=== PATIENT | male | born 1940 | race Caucasian/White ===

== ENCOUNTER 2020-03-11 12:23 | Outpatient (CLI) | payer MEDICARE, SELFPAY ==
--- NOTE | 2020-03-11 12:36 | ECHO_ITS ---
Patient Info Name: Navin Gregory Age: 79 years : 1940 Gender: Male Ht: 66 in Wt: 155 lbs BSA: 1.82 m2 HR: 56 bpm BP: 158 / 90 mmHg Heart Rhythm: Sinus Rhythm Technical Quality: Good Exam Date: 03/11/2020 12:40 PM Exam Location: [facility] Patient Status: Outpatient Admit Date: 03/11/2020 Staff Ordering Physician: Tracie, Mary Egan MD Gun [employer] Manager: Arlyn Valdivia RDCS Attending Provider: Tracie, Mary Egan MD Referring Physician: Tracie LAWTON; Exam Type: CA echo doppler color flow Study Info Indications R06.02 - Shortness of breath Complete two-dimensional, color flow and Doppler transthoracic echocardiogram is performed. Strain analysis performed. History/Risk Factors Hypertension: No Dyslipidemia: No Congenital Heart Disease (CHD): No Peripheral Arterial Disease (PAD): No Myocardial Infarction (GA): No Chronic Lung Disease: No Obesity: No Renal Disease: No Coronary Artery Disease (CAD) No Congestive Heart Failure (CHF): No Cardiomyopathy/LV Systolic Dysfunction: No Diabetes Mellitus: No COPD: No Tobacco Use: Never Cerebrovascular Disease: No Deep Vein Thrombosis (DVT): None Dialysis: None Frailty Scale (CSHA): 2: Well Cardiac Arrest: No Summary 1. Left ventricular chamber dimension is normal. 2. Left ventricular systolic function is normal, estimated at 60-65%. 3. There is moderately increased left ventricular wall thickness. 4. The left ventricular diastolic function is grade I diastolic dysfunction. 5. E/e' 10 is mildly elevated. 6. Global longitudinal strain is normal at -17.7%. 7. Left atrial chamber dimension is mildly enlarged. 8. There is mild mitral valve regurgitation. 9. No pulmonary hypertension, estimated pulmonary arterial systolic pressure is 29 mmHg. 10. There is trace pulmonic regurgitation. 11. Small atheroma in anterior aortic root. Left Ventricle E/e' 10 is mildly elevated. Global longitudinal strain is normal at -17.7%. Left ventricular chamber dimension is normal. Left ventricular systolic function is normal, estimated at 60-65%. There is moderately increased left ventricular wall thickness. The left ventricular diastolic function is grade I diastolic dysfunction. Right Ventricle Right ventricular chamber dimension is normal. Right ventricular systolic function is normal. Left Atria Left atrial chamber dimension is mildly enlarged. Right Atria Right atrial chamber dimension is normal. Aortic Valve The aortic valve is trileaflet. There is no aortic valve stenosis. There is no aortic valve regurgitation. Pulmonic Valve There is trace pulmonic regurgitation. Mitral Valve There is no mitral valve stenosis. There is mild mitral valve regurgitation. Tricuspid Valve There is no tricuspid valve regurgitation. No pulmonary hypertension, estimated pulmonary arterial systolic pressure is 29 mmHg. Pericardium/Pleural There is no pericardial effusion. Inferior Vena Cava Normal inferior vena cava with >50% collapse upon inspiration consistent with normal right atrial pressure, 5 mmHg. Aorta Small atheroma in anterior aortic root. The aortic root size at the sinus of Valsalva is normal. Left Ventricular Outflow Tract Name Value Normal
== END 2020-03-11 12:24 | disposition home or self-care (01) ==
LOC: CHSIMG 12:28
PROVIDERS: PCP Family Medicine; Visit Provider Family Medicine
DX: R06.02 Shortness of breath (principal)
CPT/HCPCS: 93306

== ENCOUNTER 2020-03-15 09:13 | Outpatient (CLI) | payer MEDICARE, SELFPAY ==
[2020-03-15 09:30] LABS: Basophils Absolute Auto 0.03 K/mm3 (0.00-0.10); Basophils Percent Auto 0.4 % (0.0-1.0); Eosinophils Absolute Auto 0.25 K/mm3 (0.02-0.50); Eosinophils Percent Auto 3.1 % (1.0-6.0); Hematocrit 39.3 % (37.0-46.0); Hemoglobin 12.9 g/dL (12.4-15.3); Immature Granulocyte Absolute 0.03 K/mm3 (0.00-0.00); Immature Granulocyte Percent A 0.4 % (0.0-0.0); Lymphocytes Percent Auto 17.5 % (18.0-42.0); Mean Corpuscular HGB Conc 32.8 g/dL (32.0-36.0); Mean Corpuscular Hemoglobin 30.4 pg (27.0-31.0); Mean Corpuscular Volume 92.5 fL (78.0-102.0); Mean Platelet Volume 9.2 fl (8.7-11.0); Neutrophils Absolute Auto 5.5 K/mm3 (1.7-7.2); Neutrophils Percent Auto 68.6 % (50.0-70.0); Platelet Count Result 303 K/mm3 (150-420); Red Blood Count 4.25 M/mm3 (4.70-6.10); Red Cell Distribution Width 12.5 % (11.6-14.4)
[2020-03-15 10:36] LABS: Alanine Aminotransferase 21 U/L (16-63); Albumin Level 3.6 g/dL (3.4-5.0); Alkaline Phosphatase 53 U/L (46-116); Anion Gap 8 mmol/L (8-16); Aspartate Amino Transferase 16 U/L (15-37); Bilirubin,Total 0.4 mg/dL (0.00-1.00); Blood Urea Nitrogen 24 mg/dL (7-18); Calcium 9.6 mg/dL (8.5-10.1); Carbon Dioxide 28 mmol/L (21-32); Chloride 101 mmol/L (98-108); Cholesterol 152 mg/dL (0-200); Estimated Glomerular Filt Rate 56; Glucose 95 mg/dL (70-99); HDL Direct 52 mg/dL (40-60); LDL Cholesterol Calculated 80 mg/dL (<130); Osmolality Calculated 288 mOsm/kg (285-295); Potassium 4.1 mmol/L (3.5-5.1); Sodium 137 mmol/L (136-145); Total Protein 7.3 g/dL (6.4-8.2); Triglycerides 101 mg/dL (0-150)
[2020-03-15 10:53] LABS: Thyroid Stimulating Hormone Reflex 1.94 u/IU/mL (0.36-3.74)
== END 2020-03-15 09:14 | disposition home or self-care (01) ==
LOC: CHSLAB 09:15
PROVIDERS: PCP Family Medicine; Visit Provider Family Medicine
DX: R53.83 Other fatigue (principal); I10 Essential (primary) hypertension; E78.2 Mixed hyperlipidemia
CPT/HCPCS: 36415; 80053; 80061; 84443; 85025

== ENCOUNTER 2020-05-25 09:33 | Outpatient (CLI) | payer MEDICARE, SELFPAY ==
--- NOTE | ~2020-05-25 | CT_ITS ---
EXAMINATION: CT abdomen pelvis wo/w con DATE: 05/25/2020 10:47 INDICATION: Bladder cancer TECHNIQUE: Computed tomography (CT) of the abdomen and pelvis was performed without intravenous contr ast. CT of the abdomen and pelvis was then performed with a total of 100 mL Omnipaque 350 intravenous contrast. The dose-length product (DLP) was 521.36 mGy-cm. Automated exposure control and iterative reconstruction technique were employed. COMPARISON: 01/07/2019 FINDINGS: Minimal dependent atelectasis is present in the lung bases. The heart size is normal. There is a stable 4 mm nodule of the right lower lobe. Calcified pleural plaques are noted. There is emphy sema of the visualized lung bases. The liver, spleen, pancreas, gallbladder, and adrenal glands are n ormal. There is a moderate-sized sliding hiatal hernia. A 5.6 x 3.1 cm mass has developed in the post erior aspect of the left mid and upper kidney. There is urothelial enhancement of the left renal pelv is. There is left retroperitoneal lymphadenopathy with largest lymph node measuring 11 mm on image 52 . The left renal vein is patent. There is moderate lumbar spondylosis. The right kidney is unremark able. There are changes of cystectomy and ileal conduit formation. Colonic diverticulosis is present without evidence of diverticulitis. There is no free intraperitoneal gas or evidence of bowel obstruc tion. IMPRESSION: 1. Interval development of a left kidney mass, urothelial thickening and enhancement of the left ann marie l pelvis, and left retroperitoneal lymphadenopathy. Although findings could reflect pyelonephritis, u rothelial carcinoma is the primary consideration. Reviewed, dictated and finalized at location A. ORY MAINTENANCE MANAGER IMPRESSION: 1. Interval development of a left kidney mass, urothelial thickening and enhanc ement of the left renal pelvis, and left retroperitoneal lymphadenopathy. Altho ugh findings could reflect pyelonephritis, urothelial carcinoma is the primary consideration.
--- NOTE | ~2020-05-25 | XR_ITS ---
EXAMINATION: XR chest 2V EXAM DATE: 05/25/2020 10:48 INDICATION: Cough, bladder cancer follow-up. TECHNIQUE: Frontal and lateral projections of the chest obtained and reviewed. Comparison is made to prior examination from 11/14/18. FINDINGS: Lungs are moderately hyperinflated. The lungs are clear. There are no pleural effusions. The cardiomediastinal silhouette is within normal limits. There is no pneumothorax suspected. The bones and soft tissues are unremarkable. IMPRESSION: 1. No acute cardiopulmonary findings. 2. Hyperinflation. Reviewed, dictated and finalized at location B. TS MEDIA
[2020-05-25 10:06] LABS: Alanine Aminotransferase 26 U/L (16-63); Albumin Level 3.5 g/dL (3.4-5.0); Alkaline Phosphatase 52 U/L (46-116); Anion Gap 10 mmol/L (8-16); Aspartate Amino Transferase 13 U/L (15-37); Bilirubin,Total 0.4 mg/dL (0.00-1.00); Blood Urea Nitrogen 22 mg/dL (7-18); Calcium 9.4 mg/dL (8.5-10.1); Carbon Dioxide 26 mmol/L (21-32); Chloride 101 mmol/L (98-108); Estimated Glomerular Filt Rate 57; Glucose 110 mg/dL (70-99); Osmolality Calculated 288 mOsm/kg (285-295); Potassium 4.2 mmol/L (3.5-5.1); Sodium 137 mmol/L (136-145); Total Protein 7.7 g/dL (6.4-8.2)
== END 2020-05-25 09:34 | disposition home or self-care (01) ==
PROVIDERS: PCP Family Medicine; Visit Provider Urology
DX: C67.9 Malignant neoplasm of bladder, unspecified (principal)
CPT/HCPCS: 36415; 71046; 74178; 80053; Q9965

== ENCOUNTER 2020-08-14 09:41 | Outpatient (CLI) | payer MEDICARE, SELFPAY ==
[2020-08-16 18:27] LABS: SARS-CoV-2 RNA PCR Negative
== END 2020-08-14 09:42 | disposition home or self-care (01) ==
LOC: CHSLAB 09:45
PROVIDERS: PCP Family Medicine; Visit Provider Urology
DX: Z01.812 Encounter for preprocedural laboratory examination (principal); Z20.822 Contact with and (suspected) exposure to COVID-19
CPT/HCPCS: C9803; U0003; U0005

== ENCOUNTER 2020-10-05 11:15 | Outpatient (CLI) | payer MEDICARE, SELFPAY ==
[2020-10-06 14:15] LABS: SARS-CoV-2 RNA PCR Negative
== END 2020-10-05 11:16 | disposition home or self-care (01) ==
LOC: CHSLAB 11:17
PROVIDERS: PCP Family Medicine; Visit Provider Family Medicine
DX: Z01.818 Encounter for other preprocedural examination (principal); Z20.822 Contact with and (suspected) exposure to COVID-19
CPT/HCPCS: C9803; U0003; U0005

== ENCOUNTER 2020-10-28 10:01 | Outpatient (CLI) | payer MEDICARE, SELFPAY ==
[2020-10-28] MEDS: SODIUM CHLORIDE 0.9% IV 250 ML 10 ML IVPB (10:37)
[2020-10-28] MEDS: diphenhydrAMINE HCl INJ 50 MG/ML VIAL 25 MG IV PUSH (10:38)
[2020-10-28] MEDS: FAMOTIDINE 20 MG/ISO 50 ML 20 MG/50 ML BAG 100 MG IVPB (10:38)
[2020-10-28 10:49] VITALS: BP 138/88; PULSE 58; RESP 14; TEMP 36.6; O2SAT 97
[2020-10-28 11:37] VITALS: BMI 25.1
[2020-10-28] MEDS: SODIUM CHLORIDE 0.9% IVPB (14:40)
[2020-10-28] MEDS: GEMCITABINE HCL IVPB (14:40)
[2020-10-28] MEDS: HEPARIN SOD FLUSH 500 UNITS/5 ML SYRINGE IV PUSH (15:14)
[2020-10-28 15:15] VITALS: BP 142/88; PULSE 60; RESP 14; TEMP 36.7; O2SAT 97
--- NOTE | 2020-10-28 15:18 | PC.NURSE ---
Patient here for cycle 1 of taxol/gemcitabine chemo regimen q 21 days. Reviewed labs from [facility] and [facility]. Chemo education given patient and daughter. Chemo regime administered via patent port. Tolerated chemo well. Safe exit of hospital.
== END 2020-10-28 10:02 | disposition home or self-care (01) ==
LOC: CHSTREATRM 10:04
PROVIDERS: PCP Family Medicine; Visit Provider Internal Medicine Hematology & Oncology
DX: Z51.11 Encounter for antineoplastic chemotherapy (principal); C66.2 Malignant neoplasm of left ureter
CPT/HCPCS: 96367; 96375; 96413; 96415; 96417; J1100; J1200; J2405; J7040; J7050; J9201; J9267

== ENCOUNTER 2020-11-04 09:54 | Outpatient (CLI) | payer MEDICARE, SELFPAY ==
[2020-11-04 10:30] VITALS: BP 136/82; PULSE 72; RESP 16; TEMP 36.7; O2SAT 98
[2020-11-04] MEDS: SODIUM CHLORIDE 0.9% IV 250 ML 10 ML IVPB (10:33)
[2020-11-04] MEDS: GEMCITABINE HCL IVPB (11:15)
[2020-11-04] MEDS: SODIUM CHLORIDE 0.9% IVPB (11:15)
[2020-11-04] MEDS: HEPARIN SOD FLUSH 500 UNITS/5 ML SYRINGE IV PUSH (12:03)
[2020-11-04 12:05] VITALS: BP 142/86; PULSE 68; RESP 14; TEMP 36.8; O2SAT 97
--- NOTE | 2020-11-04 12:05 | PC.NURSE ---
Patient here for day 8 of taxol/gemcitabine chemo regimen. Labs ok'd by Dr.Rao Murray 11/01/20 up in [place] with his appointment. Teaching reinforced on chemo regimen given to patient and daughter with understanding. Chemo regimen administered. Tolerated well. Has some congestion noted. Daughter reports DrDanitza wants him to start taking claritin daily. Will return tomorrow for day 9 with Zarxio injection around 1300. Safe exit of hospital.
== END 2020-11-04 09:55 | disposition home or self-care (01) ==
PROVIDERS: PCP Family Medicine; Visit Provider Internal Medicine Hematology & Oncology
DX: Z51.11 Encounter for antineoplastic chemotherapy (principal); C66.2 Malignant neoplasm of left ureter
CPT/HCPCS: 96367; 96413; J1100; J2405; J7040; J7050; J9201

== ENCOUNTER 2020-11-05 12:58 | Outpatient (CLI) | payer MEDICARE, SELFPAY ==
[2020-11-05] MEDS: FILGRASTIM-SNDZ 480 MCG/0.8 ML SYRINGE SUB-Q (13:11)
[2020-11-05 13:13] VITALS: BP 140/80; PULSE 72; RESP 14; TEMP 36.7; O2SAT 98
--- NOTE | 2020-11-05 13:14 | PC.NURSE ---
Here for Day 9 of chemo regime - Zarxio injection only. Reports after IV chemo yesterday, went home and slept a lot. Denies N/V, diarrhea etc. No concerns voiced by patient or by his daughter. Zarxio injection administered and medication discussed with patient/dtr. Drug sheet was given with Chemo teaching last week with day 1 of chemo. Tolerated injection well. Safe exit of hospital.
== END 2020-11-05 12:59 | disposition home or self-care (01) ==
PROVIDERS: PCP Family Medicine; Visit Provider Internal Medicine Hematology & Oncology
DX: C66.2 Malignant neoplasm of left ureter (principal); Z76.89 Persons encountering health services in other specified circumstances
CPT/HCPCS: 96372; Q5101

== ENCOUNTER 2020-11-06 10:52 | Outpatient (CLI) | payer MEDICARE, SELFPAY ==
[2020-11-06] MEDS: FILGRASTIM-SNDZ 480 MCG/0.8 ML SYRINGE SUB-Q (11:44)
== END 2020-11-06 10:53 | disposition home or self-care (01) ==
LOC: CHSLAB 10:59
PROVIDERS: PCP Internal Medicine Hematology & Oncology; Visit Provider Internal Medicine Hematology & Oncology
DX: C66.2 Malignant neoplasm of left ureter (principal); Z76.89 Persons encountering health services in other specified circumstances
CPT/HCPCS: 96372; Q5101

== ENCOUNTER 2020-11-07 10:36 | Outpatient (CLI) | payer MEDICARE, SELFPAY ==
[2020-11-07] MEDS: FILGRASTIM-SNDZ 480 MCG/0.8 ML SYRINGE SUB-Q (12:14)
== END 2020-11-07 10:37 | disposition home or self-care (01) ==
PROVIDERS: PCP Internal Medicine Hematology & Oncology; Visit Provider Internal Medicine Hematology & Oncology
DX: C66.2 Malignant neoplasm of left ureter (principal); Z76.89 Persons encountering health services in other specified circumstances
CPT/HCPCS: 96372; Q5101

== ENCOUNTER 2020-11-08 11:55 | Outpatient (CLI) | payer MEDICARE, SELFPAY ==
--- NOTE | 2020-11-08 12:05 | PC.NURSE ---
Here for OP injection
[2020-11-08] MEDS: FILGRASTIM-SNDZ 480 MCG/0.8 ML SYRINGE SUB-Q (12:09)
--- NOTE | 2020-11-08 12:11 | PC.NURSE ---
Tolerated well, chemo nurse in to speak with patient, discharged ambulatory with family
== END 2020-11-08 11:56 | disposition home or self-care (01) ==
LOC: CHSTREATRM 11:56
PROVIDERS: PCP Family Medicine; Visit Provider Internal Medicine Hematology & Oncology
DX: C66.2 Malignant neoplasm of left ureter (principal); Z76.89 Persons encountering health services in other specified circumstances
CPT/HCPCS: 96372; Q5101

== ENCOUNTER 2020-11-16 14:10 | Outpatient (CLI) | payer MEDICARE, SELFPAY ==
[2020-11-16 14:31] LABS: Hemoglobin 9.7 g/dL (12.4-15.3); Mean Corpuscular HGB Conc 32.3 g/dL (32.0-36.0); Mean Corpuscular Hemoglobin 29.6 pg (27.0-31.0); Mean Corpuscular Volume 91.5 fL (78.0-102.0); Mean Platelet Volume 9.6 fl (8.7-11.0); Platelet Count Result 445 K/mm3 (150-420); Red Blood Count 3.28 M/mm3 (4.70-6.10); Red Cell Distribution Width 14.5 % (11.6-14.4); White Blood Count 8.5 K/mm3 (4.8-10.8)
[2020-11-16 15:00] LABS: Band Neutrophils Percent 2 % (0-6); Basophils Percent Manual 0 % (0-1); Eosinophils Percent Manual 0 % (1-6); Lymphocytes Percent Manual 13 % (18-44); Metamyelocytes Percent 2 %; Monocytes Absolute Manual 1.02 K/mm3 (0.1-0.90); Monocytes Percent Manual 12 % (3-9); Myelocytes Percent 1 %; Neutrophils Absolute Manual 6.12 K/mm3 (1.3-6.7); Neutrophils Percent Manual 70 % (46-73); Total Cells Counted 100
[2020-11-16 15:32] LABS: Alanine Aminotransferase 32 U/L (16-63); Albumin Level 2.9 g/dL (3.4-5.0); Alkaline Phosphatase 55 U/L (46-116); Anion Gap 6 mmol/L (8-16); Aspartate Amino Transferase 12 U/L (15-37); Bilirubin,Total 0.3 mg/dL (0.00-1.00); Blood Urea Nitrogen 19 mg/dL (7-18); Calcium 8.7 mg/dL (8.5-10.1); Carbon Dioxide 28 mmol/L (21-32); Chloride 100 mmol/L (98-108); Estimated Glomerular Filt Rate 47; Glucose 140 mg/dL (70-99); Magnesium 2.1 mg/dL (1.8-2.4); Osmolality Calculated 282 mOsm/kg (285-295); Potassium 4.3 mmol/L (3.5-5.1); Sodium 134 mmol/L (136-145); Total Protein 6.1 g/dL (6.4-8.2)
== END 2020-11-16 14:11 | disposition home or self-care (01) ==
LOC: CHSLAB 14:14
PROVIDERS: PCP Family Medicine; Visit Provider Internal Medicine Hematology & Oncology
DX: C67.9 Malignant neoplasm of bladder, unspecified (principal)
CPT/HCPCS: 36415; 80053; 83735; 85025

== ENCOUNTER 2020-11-18 10:17 | Outpatient (CLI) | payer MEDICARE, SELFPAY ==
[2020-11-18] MEDS: FAMOTIDINE 20 MG/ISO 50 ML 20 MG/50 ML BAG 100 MG IVPB (10:47)
[2020-11-18] MEDS: diphenhydrAMINE HCl INJ 50 MG/ML VIAL 25 MG IV PUSH (10:47)
[2020-11-18] MEDS: SODIUM CHLORIDE 0.9% IV 250 ML 35 ML IVPB (10:48)
[2020-11-18 10:58] VITALS: BP 145/69; PULSE 68; RESP 14; TEMP 37.2; O2SAT 97
[2020-11-18 11:03] VITALS: BMI 25.0
[2020-11-18] MEDS: SODIUM CHLORIDE 0.9% IVPB (14:46)
[2020-11-18] MEDS: GEMCITABINE HCL IVPB (14:46)
[2020-11-18 15:39] VITALS: BP 146/70; PULSE 78; RESP 16; TEMP 37.1; O2SAT 96
[2020-11-18] MEDS: HEPARIN SOD FLUSH 500 UNITS/5 ML SYRINGE IV PUSH (15:42)
--- NOTE | 2020-11-18 15:43 | PC.NURSE ---
Patient here for cycle 2 day 1 of chemo regime. Labs reviewed and ok'd from 11/16/20. Education on chemo reinforced and continued. No concerns voiced. Chemo regime administered. Tolerated well. Safe exit of hospital. Will return Sunday, November 22 for Venofer infusion then November 25 for day 8 of chemo regime.
== END 2020-11-18 10:18 | disposition home or self-care (01) ==
PROVIDERS: PCP Family Medicine; Visit Provider Internal Medicine Hematology & Oncology
DX: Z51.11 Encounter for antineoplastic chemotherapy (principal); C66.2 Malignant neoplasm of left ureter
CPT/HCPCS: 96367; 96375; 96413; 96415; 96417; J1100; J1200; J2405; J7040; J7050; J9201; J9267

== ENCOUNTER 2020-11-22 10:44 | Outpatient (CLI) | payer MEDICARE, SELFPAY ==
[2020-11-22 11:10] VITALS: BP 129/80; PULSE 68; RESP 18; O2SAT 97
--- NOTE | 2020-11-22 11:10 | PC.NURSE ---
Patient here for Venofer infusion. Tolerated port start well. Labs drawn per order from port. Patient sitting up in chair resting. Provided with water and warm blanket. Call light within reach. Daughter sitting with patient.
[2020-11-22] MEDS: HEPARIN SOD FLUSH 500 UNITS/5 ML SYRINGE IV PUSH (11:20)
[2020-11-22] MEDS: IRON SUCROSE COMPLEX 300 MG in SODIUM CHLORIDE 0.9% IV 250 ML 125 MG IVPB (11:21)
[2020-11-22 11:32] LABS: Basophils Absolute Auto 0.03 K/mm3 (0.00-0.10); Basophils Percent Auto 0.3 % (0.0-1.0); Eosinophils Absolute Auto 0.13 K/mm3 (0.02-0.50); Eosinophils Percent Auto 1.5 % (1.0-6.0); Hematocrit 26.7 % (37.0-46.0); Hemoglobin 8.7 g/dL (12.4-15.3); Immature Granulocyte Absolute 0.03 K/mm3 (0.00-0.00); Immature Granulocyte Percent A 0.3 % (0.0-0.0); Lymphocytes Absolute Auto 0.52 K/mm3 (1.10-4.50); Mean Corpuscular HGB Conc 32.6 g/dL (32.0-36.0); Mean Corpuscular Hemoglobin 30.2 pg (27.0-31.0); Mean Corpuscular Volume 92.7 fL (78.0-102.0); Mean Platelet Volume 10.8 fl (8.7-11.0); Monocytes Absolute Auto 0.15 K/mm3 (0.10-0.90); Monocytes Percent Auto 1.7 % (2.0-11.0); Neutrophils Absolute Auto 7.8 K/mm3 (1.7-7.2); Neutrophils Percent Auto 90.2 % (50.0-70.0); Platelet Count Result 427 K/mm3 (150-420); Red Blood Count 2.88 M/mm3 (4.70-6.10); Red Cell Distribution Width 14.8 % (11.6-14.4); White Blood Count 8.6 K/mm3 (4.8-10.8)
[2020-11-22 11:59] LABS: Alanine Aminotransferase 79 U/L (16-63); Albumin Level 2.7 g/dL (3.4-5.0); Alkaline Phosphatase 43 U/L (46-116); Anion Gap 8 mmol/L (8-16); Aspartate Amino Transferase 56 U/L (15-37); Bilirubin,Total 0.5 mg/dL (0.00-1.00); Blood Urea Nitrogen 18 mg/dL (7-18); Calcium 8.7 mg/dL (8.5-10.1); Carbon Dioxide 26 mmol/L (21-32); Chloride 98 mmol/L (98-108); Estimated Glomerular Filt Rate > 60; Glucose 109 mg/dL (70-99); Osmolality Calculated 276 mOsm/kg (285-295); Sodium 132 mmol/L (136-145); Total Protein 6.4 g/dL (6.4-8.2)
--- NOTE | 2020-11-22 13:30 | PC.NURSE ---
Patient tolerated infusion well. Port site to right chest de-accessed, dressing applied to site. Patient denies any questions or concerns. Left ambulatory accompanied by daughter.
== END 2020-11-22 10:45 | disposition home or self-care (01) ==
LOC: CHSTREATRM 10:48
PROVIDERS: PCP Family Medicine; Visit Provider Internal Medicine Hematology & Oncology
DX: D70.1 Agranulocytosis secondary to cancer chemotherapy (principal)
CPT/HCPCS: 36415; 80053; 85025; 96365; 96366; J1756; J7050

== ENCOUNTER 2020-11-25 10:09 | Outpatient (CLI) | payer MEDICARE, SELFPAY ==
[2020-11-25] MEDS: SODIUM CHLORIDE 0.9% IV 250 ML 10 ML IVPB (10:20)
[2020-11-25 10:41] VITALS: BP 128/68; PULSE 74; RESP 14; TEMP 37.2; O2SAT 99
[2020-11-25] MEDS: SODIUM CHLORIDE 0.9% IVPB (11:26)
[2020-11-25] MEDS: GEMCITABINE HCL IVPB (11:26)
[2020-11-25] MEDS: HEPARIN SOD FLUSH 500 UNITS/5 ML SYRINGE IV PUSH (12:07)
[2020-11-25 12:22] VITALS: BP 138/70; PULSE 72; RESP 18; TEMP 37.2; O2SAT 98
--- NOTE | 2020-11-25 12:24 | PC.NURSE ---
Patient here for day 8 of cycle 2 chemo regimen. C/O diarrhea. Dr. Lorenzo notified and Lomotil prescribed. All other concerns discussed with patient and daughter. Labs reviewed from earlier this week. OK'd for chemo. Chemo regimen administered. Tolerated well. Safe exit of hospital. Will return next 4 days for zarxio injection.
== END 2020-11-25 10:10 | disposition home or self-care (01) ==
PROVIDERS: PCP Family Medicine; Visit Provider Internal Medicine Hematology & Oncology
DX: Z51.11 Encounter for antineoplastic chemotherapy (principal); C66.2 Malignant neoplasm of left ureter
CPT/HCPCS: 96367; 96413; J1100; J2405; J7050; J9201

== ENCOUNTER 2020-11-26 10:31 | Outpatient (CLI) | payer MEDICARE, SELFPAY ==
[2020-11-26] MEDS: FILGRASTIM-SNDZ 480 MCG/0.8 ML SYRINGE SUB-Q (10:48)
--- NOTE | 2020-11-26 10:51 | PC.NURSE ---
Patient here for day 9 of chemo regimen- Zarxio injection. Patient reports diarrhea little better- started on lomotil. Dr. Lorenzo does want of stool collection for c diff. Supplies and order explained and sent with patient. Safe exit of hospital. Will be back tomorrow for day 10 Zarxio injection.
== END 2020-11-26 10:32 | disposition home or self-care (01) ==
LOC: CHSTREATRM 10:34
PROVIDERS: PCP Family Medicine; Visit Provider Internal Medicine Hematology & Oncology
DX: C66.2 Malignant neoplasm of left ureter (principal); Z76.89 Persons encountering health services in other specified circumstances
CPT/HCPCS: 96372; Q5101

== ENCOUNTER 2020-11-27 10:17 | Outpatient (CLI) | payer MEDICARE, SELFPAY ==
[2020-11-27] MEDS: FILGRASTIM-SNDZ 480 MCG/0.8 ML SYRINGE SUB-Q (10:28)
--- NOTE | 2020-11-27 10:30 | PC.NURSE ---
Patient here for injection of Zarxio. Injection given in right upper arm, patient tolerated well. Band aid applied to site. Patient to come back tomorrow for consecutive shot. Patient left ambulatory, denies any questions or concerns at discharge.
== END 2020-11-27 10:18 | disposition home or self-care (01) ==
LOC: CHSTREATRM 10:21
PROVIDERS: PCP Family Medicine; Visit Provider Internal Medicine Hematology & Oncology
DX: C66.2 Malignant neoplasm of left ureter (principal); Z76.89 Persons encountering health services in other specified circumstances
CPT/HCPCS: 96372; Q5101

== ENCOUNTER 2020-11-28 10:48 | Outpatient (CLI) | payer MEDICARE, SELFPAY ==
[2020-11-28] MEDS: FILGRASTIM-SNDZ 480 MCG/0.8 ML SYRINGE SUB-Q (11:00)
--- NOTE | 2020-11-28 11:00 | PC.NURSE ---
Patient here to receive Sub Q injection of Zarxio. Patient tolerated injection well. Band Aid applied to site. Patient left ambulatory accompanied by family member. No questions or concerns at discharge.
== END 2020-11-28 10:49 | disposition home or self-care (01) ==
LOC: CHSTREATRM 10:51
PROVIDERS: PCP Family Medicine; Visit Provider Internal Medicine Hematology & Oncology
DX: C66.2 Malignant neoplasm of left ureter (principal); Z76.89 Persons encountering health services in other specified circumstances
CPT/HCPCS: 96372; Q5101

== ENCOUNTER 2020-11-29 10:45 | Outpatient (CLI) | payer MEDICARE, SELFPAY ==
[2020-11-29] MEDS: IRON SUCROSE COMPLEX 300 MG in SODIUM CHLORIDE 0.9% IV 250 ML 125 MG IVPB (11:06)
[2020-11-29] MEDS: FILGRASTIM-SNDZ 480 MCG/0.8 ML SYRINGE SUB-Q (11:12)
--- NOTE | 2020-11-29 11:15 | PCDIET ---
Pt to room 201 amb per self. A&Ox3.Pt complains of being nauseated and having diarrhea. States this has been going on since he started chemo. Port accessed without difficulty. Pt oriented to room. Call charles in reach. Reminded to call with needs.
[2020-11-29] MEDS: HEPARIN SOD FLUSH 500 UNITS/5 ML SYRINGE IV PUSH (13:10)
--- NOTE | 2020-11-29 13:40 | PC.NURSE ---
All medications given as ordered. Pt tolerated well. Pt discharge to home ambulatory with daughter.
== END 2020-11-29 10:46 | disposition home or self-care (01) ==
LOC: CHSTREATRM 10:48
PROVIDERS: PCP Family Medicine; Visit Provider Internal Medicine Hematology & Oncology
DX: D50.8 Other iron deficiency anemias (principal); Z76.89 Persons encountering health services in other specified circumstances
CPT/HCPCS: 96365; 96366; 96372; J1756; J7050; Q5101

== ENCOUNTER 2020-12-06 10:28 | Outpatient (CLI) | payer MEDICARE, SELFPAY ==
[2020-12-06 10:59] LABS: Hematocrit 22.5 % (37.0-46.0); Mean Corpuscular HGB Conc 30.7 g/dL (32.0-36.0); Mean Corpuscular Hemoglobin 29.7 pg (27.0-31.0); Platelet Count Result 287 K/mm3 (150-420); Red Blood Count 2.32 M/mm3 (4.70-6.10); Red Cell Distribution Width 19.5 % (11.6-14.4); White Blood Count 8.4 K/mm3 (4.8-10.8)
[2020-12-06 11:13] LABS: Hemoglobin 6.9 g/dL (12.4-15.3)
[2020-12-06 11:18] LABS: Band Neutrophils Percent 0 % (0-6); Eosinophils Absolute Manual 0.33 K/mm3 (0.02-0.5); Eosinophils Percent Manual 4 % (1-6); Lymphocytes Absolute Manual 1.76 K/mm3 (1.1-4.5); Lymphocytes Percent Manual 21 % (18-44); Metamyelocytes Percent 1 %; Monocytes Absolute Manual 0.92 K/mm3 (0.1-0.90); Monocytes Percent Manual 11 % (3-9); Myelocytes Percent 3 %; Neutrophils Absolute Manual 5.04 K/mm3 (1.3-6.7); Neutrophils Percent Manual 60 % (46-73); Nucleated Red Blood Cells 1 %; Platelet Estimate Adequate (Adequate); Total Cells Counted 100
[2020-12-06 11:27] LABS: Alanine Aminotransferase 44 U/L (16-63); Albumin Level 2.8 g/dL (3.4-5.0); Alkaline Phosphatase 53 U/L (46-116); Anion Gap 8 mmol/L (8-16); Aspartate Amino Transferase 19 U/L (15-37); Bilirubin,Total 0.3 mg/dL (0.00-1.00); Blood Urea Nitrogen 18 mg/dL (7-18); Calcium 8.7 mg/dL (8.5-10.1); Carbon Dioxide 28 mmol/L (21-32); Chloride 102 mmol/L (98-108); Estimated Glomerular Filt Rate > 60; Glucose 100 mg/dL (70-99); Osmolality Calculated 287 mOsm/kg (285-295); Sodium 138 mmol/L (136-145); Total Protein 5.6 g/dL (6.4-8.2)
[2020-12-06] MEDS: SODIUM CHLORIDE 0.9% IV 250 ML 10 ML IVPB (13:50)
[2020-12-06] MEDS: ACETAMINOPHEN 325 MG TABLET 650 MG PO (13:50)
[2020-12-06 14:09] VITALS: BP 105/67; PULSE 72; RESP 14; TEMP 37; O2SAT 98
[2020-12-06 14:10] VITALS: BP 110/62; PULSE 78; RESP 14; TEMP 37; O2SAT 98
[2020-12-06 15:25] VITALS: BP 120/60; PULSE 76; RESP 14; TEMP 37.2; O2SAT 98
[2020-12-06 16:25] VITALS: BP 114/64; PULSE 68; RESP 14; TEMP 37.1; O2SAT 99
[2020-12-06 16:35] LABS: Hematocrit 22.9 % (37.0-46.0); Hemoglobin 7.5 g/dL (12.4-15.3)
--- NOTE | 2020-12-06 16:47 | PC.NURSE ---
[id number] Current chemotherapy patient here for 1 unit PRBC's r/t hgb 6.[address] Lorenzo's orders. Blood permit signed and procedure before and after educated on. 1 Unit PRBC's administered SEE TAR. Tolerated well. Post Hgb 7.5. Safe exit of hospital. Patient has a tele conference tomorrow with Dr. Lorenzo than is scheduled for chemo cycle 3 day 1 this .
== END 2020-12-06 10:29 | disposition home or self-care (01) ==
PROVIDERS: PCP Family Medicine; Visit Provider Internal Medicine Hematology & Oncology
DX: C67.9 Malignant neoplasm of bladder, unspecified (principal)
CPT/HCPCS: 36415; 36430; 80053; 85014; 85018; 85025; 86850; 86900; 86901; 86920; A9270; J7050; P9016

== ENCOUNTER 2020-12-09 10:09 | Outpatient (CLI) | payer MEDICARE, SELFPAY ==
[2020-12-09 10:32] VITALS: BMI 23.5
[2020-12-09 10:37] VITALS: BP 131/71; PULSE 78; RESP 14; TEMP 36.6; O2SAT 99
[2020-12-09 10:48] LABS: Hematocrit 26.9 % (37.0-46.0); Hemoglobin 8.8 g/dL (12.4-15.3); Mean Corpuscular HGB Conc 32.7 g/dL (32.0-36.0); Mean Corpuscular Hemoglobin 31.8 pg (27.0-31.0); Mean Corpuscular Volume 97.1 fL (78.0-102.0); Mean Platelet Volume 9.7 fl (8.7-11.0); Platelet Count Result 623 K/mm3 (150-420); Red Blood Count 2.77 M/mm3 (4.70-6.10); Red Cell Distribution Width 19.9 % (11.6-14.4)
[2020-12-09 11:03] LABS: Alanine Aminotransferase 37 U/L (16-63); Albumin Level 2.9 g/dL (3.4-5.0); Alkaline Phosphatase 50 U/L (46-116); Anion Gap 9 mmol/L (8-16); Aspartate Amino Transferase < 10 U/L (15-37); Bilirubin,Total 0.3 mg/dL (0.00-1.00); Blood Urea Nitrogen 14 mg/dL (7-18); Calcium 9.1 mg/dL (8.5-10.1); Carbon Dioxide 28 mmol/L (21-32); Chloride 101 mmol/L (98-108); Estimated CRCL calculation 37 ml/min; Estimated Glomerular Filt Rate 53; Glucose 97 mg/dL (70-99); Osmolality Calculated 286 mOsm/kg (285-295); Potassium 3.7 mmol/L (3.5-5.1); Sodium 138 mmol/L (136-145); Total Protein 6.2 g/dL (6.4-8.2)
[2020-12-09 11:12] LABS: Band Neutrophils Percent 0 % (0-6); Eosinophils Absolute Manual 0.24 K/mm3 (0.02-0.5); Eosinophils Percent Manual 3 % (1-6); Lymphocytes Absolute Manual 1.12 K/mm3 (1.1-4.5); Lymphocytes Percent Manual 14 % (18-44); Monocytes Absolute Manual 0.72 K/mm3 (0.1-0.90); Monocytes Percent Manual 9 % (3-9); Myelocytes Percent 3 %; Neutrophils Absolute Manual 5.68 K/mm3 (1.3-6.7); Neutrophils Percent Manual 71 % (46-73); Total Cells Counted 100
[2020-12-09 11:13] LABS: Nucleated Red Blood Cells 1 %; Platelet Estimate Increased (Adequate)
--- NOTE | 2020-12-09 11:22 | PC.NURSE ---
Patient here for cycle 3 day 1 of chemo regimen. Weight 66kg was 69 kg 2 weeks ago. C/O diarrhea. Was unable to catch stool sample at home last week. Attempt here being unsuccessful. Collection cup/hat sent home with patient. Order at front end developer javascript html css for C-diff. Labs drawn from port. Reviewed and sent to Dr. Lorenzo. Dr. Lorenzo notified of weight loss, diarrhea. Orders to hold off 1 week for chemo. Will return next for chemo. Safe exit of hospital.
[2020-12-09] MEDS: HEPARIN SOD FLUSH 500 UNITS/5 ML SYRINGE IV PUSH (11:27)
== END 2020-12-09 10:10 | disposition home or self-care (01) ==
LOC: CHSTREATRM 10:12
PROVIDERS: PCP Family Medicine; Visit Provider Internal Medicine Hematology & Oncology
DX: C66.2 Malignant neoplasm of left ureter (principal); Z76.89 Persons encountering health services in other specified circumstances
CPT/HCPCS: 36415; 80053; 85025

== ENCOUNTER 2020-12-11 12:34 | Outpatient (NON) | payer MEDICARE, SELFPAY | END 2020-12-11 12:35 | disposition home or self-care (01) | PROVIDERS: PCP Family Medicine; Visit Provider Internal Medicine Hematology & Oncology | DX: R19.7 Diarrhea, unspecified (principal) | CPT/HCPCS: 87324 ==

== ENCOUNTER 2020-12-13 10:27 | Outpatient (CLI) | payer MEDICARE, SELFPAY ==
--- NOTE | 2020-12-13 11:00 | PC.NURSE ---
Patient here for venofer infusion. Patient states he is till having loose stool, and he thinks the venofer is making it worse. Patient refusing venofer, notifed. Waiting shader and toner back from office about patient possibly receiving IV fluids.
--- NOTE | 2020-12-13 11:09 | PC.NURSE ---
Orders received from Dr. Lorenzo for 500 1x bolus and CBC and CMP Labs to be drawn.
[2020-12-13] MEDS: SODIUM CHLORIDE 0.9% IV 500 ML 999 ML IVPB (12:05)
[2020-12-13 12:24] LABS: Hematocrit 27.3 % (37.0-46.0); Hemoglobin 8.9 g/dL (12.4-15.3); Mean Corpuscular HGB Conc 32.6 g/dL (32.0-36.0); Mean Corpuscular Hemoglobin 31.8 pg (27.0-31.0); Mean Corpuscular Volume 97.5 fL (78.0-102.0); Mean Platelet Volume 9.8 fl (8.7-11.0); Platelet Count Result 657 K/mm3 (150-420)
[2020-12-13 12:39] LABS: Alanine Aminotransferase 29 U/L (16-63); Albumin Level 3.1 g/dL (3.4-5.0); Alkaline Phosphatase 51 U/L (46-116); Anion Gap 8 mmol/L (8-16); Aspartate Amino Transferase 23 U/L (15-37); Bilirubin,Total 0.4 mg/dL (0.00-1.00); Blood Urea Nitrogen 13 mg/dL (7-18); Carbon Dioxide 28 mmol/L (21-32); Chloride 100 mmol/L (98-108); Estimated Glomerular Filt Rate 49; Glucose 113 mg/dL (70-99); Osmolality Calculated 283 mOsm/kg (285-295); Potassium 4.2 mmol/L (3.5-5.1); Sodium 136 mmol/L (136-145); Total Protein 6.4 g/dL (6.4-8.2)
--- NOTE | 2020-12-13 12:45 | PC.NURSE ---
Patient tolerated IV fluids well. Port site de-accessed, dressing applied to site. Patient left ambulatory accompanied by daughter. Provided with supplies to collect stool culture. Denies any questions at discharge.
[2020-12-13 13:08] LABS: Band Neutrophils Percent 0 % (0-6); Eosinophils Absolute Manual 0.06 K/mm3 (0.02-0.5); Eosinophils Percent Manual 1 % (1-6); Lymphocytes Absolute Manual 1.26 K/mm3 (1.1-4.5); Lymphocytes Percent Manual 21 % (18-44); Metamyelocytes Percent 1 %; Monocytes Absolute Manual 1.02 K/mm3 (0.1-0.90); Monocytes Percent Manual 17 % (3-9); Neutrophils Percent Manual 60 % (46-73); Total Cells Counted 100
[2020-12-13 13:25] LABS: Platelet Estimate Increased (Adequate)
== END 2020-12-13 10:28 | disposition home or self-care (01) ==
LOC: CHSTREATRM 10:30
PROVIDERS: PCP Family Medicine; Visit Provider Internal Medicine Hematology & Oncology
DX: D50.8 Other iron deficiency anemias (principal); R19.7 Diarrhea, unspecified
CPT/HCPCS: 36415; 80053; 85025; 96360; J1756; J7040; J7050

== ENCOUNTER 2020-12-20 13:29 | Outpatient (NON) | payer MEDICARE, SELFPAY | END 2020-12-20 13:30 | disposition home or self-care (01) | LOC: CHSLAB 13:30 | PROVIDERS: Visit Provider Internal Medicine Hematology & Oncology | DX: R19.7 Diarrhea, unspecified (principal) | CPT/HCPCS: 87045; 87046; 87427 ==

== ENCOUNTER 2021-01-05 11:22 | Outpatient (CLI) | payer MEDICARE, SELFPAY ==
[2021-01-05 11:41] LABS: Basophils Absolute Auto 0.04 K/mm3 (0.00-0.10); Basophils Percent Auto 0.5 % (0.0-1.0); Eosinophils Absolute Auto 0.21 K/mm3 (0.02-0.50); Eosinophils Percent Auto 2.7 % (1.0-6.0); Hematocrit 33.7 % (37.0-46.0); Hemoglobin 10.9 g/dL (12.4-15.3); Immature Granulocyte Absolute 0.04 K/mm3 (0.00-0.00); Immature Granulocyte Percent A 0.5 % (0.0-0.0); Lymphocytes Absolute Auto 1.24 K/mm3 (1.10-4.50); Lymphocytes Percent Auto 15.7 % (18.0-42.0); Mean Corpuscular HGB Conc 32.3 g/dL (32.0-36.0); Mean Corpuscular Hemoglobin 32.1 pg (27.0-31.0); Mean Corpuscular Volume 99.1 fL (78.0-102.0); Mean Platelet Volume 8.8 fl (8.7-11.0); Monocytes Absolute Auto 0.65 K/mm3 (0.10-0.90); Monocytes Percent Auto 8.2 % (2.0-11.0); Neutrophils Absolute Auto 5.7 K/mm3 (1.7-7.2); Neutrophils Percent Auto 72.4 % (50.0-70.0); Platelet Count Result 305 K/mm3 (150-420); Red Cell Distribution Width 16.9 % (11.6-14.4); White Blood Count 7.9 K/mm3 (4.8-10.8)
[2021-01-05 12:27] LABS: Alanine Aminotransferase 35 U/L (16-63); Albumin Level 3.5 g/dL (3.4-5.0); Alkaline Phosphatase 41 U/L (46-116); Anion Gap 8 mmol/L (8-16); Aspartate Amino Transferase 16 U/L (15-37); Bilirubin,Total 0.4 mg/dL (0.00-1.00); Blood Urea Nitrogen 21 mg/dL (7-18); Calcium 9.2 mg/dL (8.5-10.1); Carbon Dioxide 28 mmol/L (21-32); Chloride 101 mmol/L (98-108); Estimated Glomerular Filt Rate 56; Glucose 92 mg/dL (70-99); Osmolality Calculated 287 mOsm/kg (285-295); Potassium 4.2 mmol/L (3.5-5.1); Sodium 137 mmol/L (136-145); Total Protein 6.3 g/dL (6.4-8.2)
== END 2021-01-05 11:23 | disposition home or self-care (01) ==
LOC: CHSLAB 11:25
PROVIDERS: PCP Family Medicine; Visit Provider Internal Medicine Hematology & Oncology
DX: C67.9 Malignant neoplasm of bladder, unspecified (principal)
CPT/HCPCS: 36415; 80053; 85025

== ENCOUNTER 2021-01-20 10:22 | Outpatient (CLI) | payer MEDICARE, SELFPAY ==
[2021-01-20] MEDS: SODIUM CHLORIDE 0.9% IV 250 ML 10 ML IVPB (10:40)
[2021-01-20] MEDS: FAMOTIDINE 20 MG/ISO 50 ML 20 MG/50 ML BAG 100 MG IVPB (10:40)
[2021-01-20 10:45] LABS: Basophils Absolute Auto 0.05 K/mm3 (0.00-0.10); Basophils Percent Auto 0.6 % (0.0-1.0); Eosinophils Absolute Auto 0.23 K/mm3 (0.02-0.50); Eosinophils Percent Auto 2.8 % (1.0-6.0); Hematocrit 35.1 % (37.0-46.0); Hemoglobin 11.4 g/dL (12.4-15.3); Immature Granulocyte Absolute 0.04 K/mm3 (0.00-0.00); Immature Granulocyte Percent A 0.5 % (0.0-0.0); Lymphocytes Absolute Auto 1.39 K/mm3 (1.10-4.50); Mean Corpuscular HGB Conc 32.5 g/dL (32.0-36.0); Mean Corpuscular Hemoglobin 32.4 pg (27.0-31.0); Mean Corpuscular Volume 99.7 fL (78.0-102.0); Mean Platelet Volume 9.2 fl (8.7-11.0); Monocytes Absolute Auto 0.72 K/mm3 (0.10-0.90); Monocytes Percent Auto 8.8 % (2.0-11.0); Neutrophils Absolute Auto 5.7 K/mm3 (1.7-7.2); Neutrophils Percent Auto 70.3 % (50.0-70.0); Platelet Count Result 278 K/mm3 (150-420); Red Blood Count 3.52 M/mm3 (4.70-6.10); Red Cell Distribution Width 15.6 % (11.6-14.4); White Blood Count 8.2 K/mm3 (4.8-10.8)
[2021-01-20 10:46] VITALS: BMI 22.6
[2021-01-20 11:01] VITALS: BP 136/70; PULSE 72; RESP 14; TEMP 37.1; O2SAT 97
[2021-01-20 11:03] LABS: Alanine Aminotransferase 30 U/L (16-63); Albumin Level 3.5 g/dL (3.4-5.0); Alkaline Phosphatase 40 U/L (46-116); Anion Gap 10 mmol/L (8-16); Aspartate Amino Transferase 16 U/L (15-37); Bilirubin,Total 0.4 mg/dL (0.00-1.00); Blood Urea Nitrogen 21 mg/dL (7-18); Calcium 9.1 mg/dL (8.5-10.1); Carbon Dioxide 27 mmol/L (21-32); Chloride 103 mmol/L (98-108); Estimated CRCL calculation 37 ml/min; Estimated Glomerular Filt Rate 52; Glucose 88 mg/dL (70-99); Osmolality Calculated 292 mOsm/kg (285-295); Potassium 4.1 mmol/L (3.5-5.1); Sodium 140 mmol/L (136-145)
[2021-01-20] MEDS: diphenhydrAMINE HCl INJ 50 MG/ML VIAL 25 MG IV PUSH (11:14)
[2021-01-20] MEDS: SODIUM CHLORIDE 0.9% IVPB (14:40)
[2021-01-20] MEDS: GEMCITABINE HCL IVPB (14:40)
--- NOTE | 2021-01-20 14:54 | PC.NURSE ---
Patient here for cycle 3 of Taxol/Gemzar Chemo regimen. Labs drawn and reviewed. Ok'd for chemo infusion. Reeducation on chemo etc with patient and his daughter whom is with him today. Chemo regimen administered. Tolerated well. Safe exit of hospital. Will return January 27, 2021 @ 1030 for day 8 of cycle 3.
[2021-01-20] MEDS: HEPARIN SODIUM LOCK FLUSH 500 UNITS/5 ML SYRINGE IV PUSH (15:09)
[2021-01-20 15:14] VITALS: BP 140/68; PULSE 80; RESP 14; TEMP 37.1; O2SAT 98
== END 2021-01-20 10:23 | disposition home or self-care (01) ==
LOC: CHSTREATRM 10:24
PROVIDERS: PCP Family Medicine; Visit Provider Internal Medicine Hematology & Oncology
DX: Z51.11 Encounter for antineoplastic chemotherapy (principal); C66.2 Malignant neoplasm of left ureter
CPT/HCPCS: 36415; 80053; 85025; 96367; 96375; 96413; 96415; 96417; J1100; J1200; J2405; J7040; J7050; J9267

== ENCOUNTER 2021-01-27 10:37 | Outpatient (CLI) | payer MEDICARE, SELFPAY ==
--- NOTE | 2021-01-27 11:07 | PC.NURSE ---
Pt to OP infusion center for chemotherapy. To chair per self. A&Ox3. Has no questions or complaints. Oriented to area. Call light in reach. Reminded to voice needs.
[2021-01-27 11:09] LABS: Hematocrit 32.1 % (37.0-46.0); Hemoglobin 10.4 g/dL (12.4-15.3); Mean Corpuscular HGB Conc 32.4 g/dL (32.0-36.0); Mean Corpuscular Volume 98.8 fL (78.0-102.0); Mean Platelet Volume 9.7 fl (8.7-11.0); Platelet Count Result 170 K/mm3 (150-420); Red Blood Count 3.25 M/mm3 (4.70-6.10); White Blood Count 3.4 K/mm3 (4.8-10.8)
[2021-01-27 11:50] LABS: Platelet Estimate Adequate (Adequate); Total Cells Counted 100
[2021-01-27 11:51] LABS: Band Neutrophils Percent 0 % (0-6); Eosinophils Absolute Manual 0.06 K/mm3 (0.02-0.5); Eosinophils Percent Manual 2 % (1-6); Lymphocytes Absolute Manual 0.64 K/mm3 (1.1-4.5); Lymphocytes Percent Manual 19 % (18-44); Monocytes Absolute Manual 0.34 K/mm3 (0.1-0.90); Monocytes Percent Manual 10 % (3-9); Neutrophils Absolute Manual 2.34 K/mm3 (1.3-6.7); Neutrophils Percent Manual 69 % (46-73)
[2021-01-27 12:05] LABS: Alanine Aminotransferase 35 U/L (16-63); Albumin Level 3.3 g/dL (3.4-5.0); Alkaline Phosphatase 48 U/L (46-116); Anion Gap 12 mmol/L (8-16); Aspartate Amino Transferase 14 U/L (15-37); Bilirubin,Total 0.3 mg/dL (0.00-1.00); Blood Urea Nitrogen 22 mg/dL (7-18); Carbon Dioxide 25 mmol/L (21-32); Chloride 103 mmol/L (98-108); Estimated Glomerular Filt Rate 55; Glucose 102 mg/dL (70-99); Osmolality Calculated 293 mOsm/kg (285-295); Potassium 4.1 mmol/L (3.5-5.1); Sodium 140 mmol/L (136-145); Total Protein 6.3 g/dL (6.4-8.2)
[2021-01-27] MEDS: SODIUM CHLORIDE 0.9% IV 250 ML 200 ML (12:20)
[2021-01-27 12:21] VITALS: BP 138/68; PULSE 72; RESP 20; TEMP 37.3; O2SAT 98
[2021-01-27] MEDS: GEMCITABINE HCL IVPB (12:46)
[2021-01-27] MEDS: SODIUM CHLORIDE 0.9% IVPB (12:46)
[2021-01-27] MEDS: HEPARIN SODIUM LOCK FLUSH 500 UNITS/5 ML SYRINGE IV PUSH (13:18)
--- NOTE | 2021-01-27 13:20 | PC.NURSE ---
All Medications infused. Pt tolerated well. has no complaints. Discharged to home ambulatory per self.
== END 2021-01-27 10:38 | disposition home or self-care (01) ==
LOC: CHSTREATRM 10:40
PROVIDERS: PCP Family Medicine; Visit Provider Internal Medicine Hematology & Oncology
DX: Z51.11 Encounter for antineoplastic chemotherapy (principal); C66.2 Malignant neoplasm of left ureter
CPT/HCPCS: 36415; 80053; 85025; 96360; 96365; 96367; 96413; J1100; J2405; J7050; J9201

== ENCOUNTER 2021-01-28 10:21 | Outpatient (CLI) | payer MEDICARE, SELFPAY ==
[2021-01-28] MEDS: FILGRASTIM-SNDZ 480 MCG/0.8 ML SYRINGE SUB-Q (10:40)
--- NOTE | 2021-01-28 10:40 | PC.NURSE ---
Pt to OP infusion center for injection, accompanied by daughter. Medication administered as ordered. Pt has no question or concerns. Discharged to home ambulatory with daughter.
== END 2021-01-28 10:22 | disposition home or self-care (01) ==
LOC: CHSTREATRM 10:24
PROVIDERS: PCP Family Medicine; Visit Provider Internal Medicine Hematology & Oncology
DX: C66.2 Malignant neoplasm of left ureter (principal); D70.1 Agranulocytosis secondary to cancer chemotherapy
CPT/HCPCS: 96372; Q5101

== ENCOUNTER 2021-01-29 11:04 | Outpatient (CLI) | payer MEDICARE, SELFPAY ==
--- NOTE | 2021-01-29 11:05 | PC.NURSE ---
Presents for OP SQ injection
[2021-01-29] MEDS: FILGRASTIM-SNDZ 480 MCG/0.8 ML SYRINGE SUB-Q (11:17)
--- NOTE | 2021-01-29 11:19 | PC.NURSE ---
tolerated well, DC with family
== END 2021-01-29 11:05 | disposition home or self-care (01) ==
LOC: CHSTREATRM 11:07
PROVIDERS: PCP Family Medicine; Visit Provider Internal Medicine Hematology & Oncology
DX: C66.2 Malignant neoplasm of left ureter (principal); D70.1 Agranulocytosis secondary to cancer chemotherapy
CPT/HCPCS: 96372; Q5101

== ENCOUNTER 2021-01-30 11:08 | Outpatient (CLI) | payer MEDICARE, SELFPAY ==
--- NOTE | 2021-01-30 11:16 | PC.NURSE ---
Here for OP injection
[2021-01-30] MEDS: FILGRASTIM-SNDZ 480 MCG/0.8 ML SYRINGE SUB-Q (11:25)
--- NOTE | 2021-01-30 11:31 | PC.NURSE ---
injection given, tolerated well, discharged to home with family
== END 2021-01-30 11:09 | disposition home or self-care (01) ==
PROVIDERS: PCP Family Medicine; Visit Provider Internal Medicine Hematology & Oncology
DX: C66.2 Malignant neoplasm of left ureter (principal); D70.1 Agranulocytosis secondary to cancer chemotherapy
CPT/HCPCS: 96372; Q5101

== ENCOUNTER 2021-01-31 11:13 | Outpatient (CLI) | payer MEDICARE, SELFPAY ==
[2021-01-31] MEDS: FILGRASTIM-SNDZ 480 MCG/0.8 ML SYRINGE SUB-Q (11:27)
--- NOTE | 2021-01-31 11:30 | PC.NURSE ---
Patient here for sub Q injection of Zarxio. Patient tolerated well. Band aid applied to site. Denies any questions or concerns at this time. Left ambulatory accompanied by daughter.
== END 2021-01-31 11:14 | disposition home or self-care (01) ==
LOC: CHSTREATRM 11:15
PROVIDERS: PCP Family Medicine; Visit Provider Internal Medicine Hematology & Oncology
DX: C66.2 Malignant neoplasm of left ureter (principal); D70.1 Agranulocytosis secondary to cancer chemotherapy
CPT/HCPCS: 96372; Q5101

== ENCOUNTER 2021-02-08 10:51 | Outpatient (CLI) | payer MEDICARE, SELFPAY ==
[2021-02-08 11:17] LABS: Hematocrit 31.8 % (37.0-46.0); Hemoglobin 10.2 g/dL (12.4-15.3); Mean Corpuscular HGB Conc 32.1 g/dL (32.0-36.0); Mean Corpuscular Hemoglobin 32.2 pg (27.0-31.0); Mean Corpuscular Volume 100.3 fL (78.0-102.0); Mean Platelet Volume 9.5 fl (8.7-11.0); Platelet Count Result 434 K/mm3 (150-420); Red Blood Count 3.17 M/mm3 (4.70-6.10); Red Cell Distribution Width 15.2 % (11.6-14.4); White Blood Count 6.1 K/mm3 (4.8-10.8)
[2021-02-08 11:35] LABS: Band Neutrophils Percent 0 % (0-6); Basophils Percent Manual 0 % (0-1); Eosinophils Absolute Manual 0.24 K/mm3 (0.02-0.5); Eosinophils Percent Manual 4 % (1-6); Lymphocytes Absolute Manual 1.09 K/mm3 (1.1-4.5); Lymphocytes Percent Manual 18 % (18-44); Metamyelocytes Percent 1 %; Monocytes Absolute Manual 0.73 K/mm3 (0.1-0.90); Monocytes Percent Manual 12 % (3-9); Myelocytes Percent 5 %; Neutrophils Absolute Manual 3.66 K/mm3 (1.3-6.7); Neutrophils Percent Manual 60 % (46-73); Total Cells Counted 100
[2021-02-08 11:47] LABS: Alanine Aminotransferase 30 U/L (16-63); Albumin Level 3.2 g/dL (3.4-5.0); Alkaline Phosphatase 47 U/L (46-116); Anion Gap 9 mmol/L (8-16); Aspartate Amino Transferase 15 U/L (15-37); Bilirubin,Total 0.2 mg/dL (0.00-1.00); Blood Urea Nitrogen 27 mg/dL (7-18); Calcium 8.4 mg/dL (8.5-10.1); Carbon Dioxide 27 mmol/L (21-32); Chloride 104 mmol/L (98-108); Estimated Glomerular Filt Rate 53; Glucose 96 mg/dL (70-99); Osmolality Calculated 295 mOsm/kg (285-295); Potassium 4.3 mmol/L (3.5-5.1); Sodium 140 mmol/L (136-145); Total Protein 6.1 g/dL (6.4-8.2)
== END 2021-02-08 10:52 | disposition home or self-care (01) ==
LOC: CHSLAB 10:54
PROVIDERS: Internal Medicine Hematology & Oncology; PCP Family Medicine; Visit Provider Internal Medicine Hematology & Oncology
DX: C66.2 Malignant neoplasm of left ureter (principal)
CPT/HCPCS: 36415; 80053; 85025

== ENCOUNTER 2021-02-10 09:45 | Outpatient (CLI) | payer MEDICARE, SELFPAY ==
[2021-02-10] MEDS: FAMOTIDINE 20 MG/ISO 50 ML 20 MG/50 ML BAG 100 MG IVPB (10:00)
[2021-02-10] MEDS: SODIUM CHLORIDE 0.9% IV 250 ML 30 ML IVPB (10:00)
[2021-02-10 10:04] VITALS: BP 113/68; PULSE 76; RESP 14; TEMP 37; O2SAT 97
[2021-02-10 10:05] VITALS: BMI 24.3
[2021-02-10] MEDS: diphenhydrAMINE HCl INJ 50 MG/ML VIAL 25 MG IV PUSH (10:30)
[2021-02-10] MEDS: SODIUM CHLORIDE 0.9% IVPB (14:10)
[2021-02-10] MEDS: GEMCITABINE HCL IVPB (14:10)
[2021-02-10] MEDS: HEPARIN SODIUM LOCK FLUSH 500 UNITS/5 ML SYRINGE IV PUSH (14:45)
[2021-02-10 14:57] VITALS: BP 130/72; PULSE 78; RESP 14; TEMP 37; O2SAT 96
--- NOTE | 2021-02-10 15:00 | PC.NURSE ---
Patient here for cycle 4 day 1 of Taxol/Gemzar chemo regime. Labs reviewed from Sun02/08/21 and ok'd. Reviewed chemo regime with patient and his daughter with no concerns voiced. Chemo regime administered. Tolerated well. Safe exit of hospital. Will return 02/17/21 for cycle 4 day 8 of chemo regime above.
== END 2021-02-10 09:46 | disposition home or self-care (01) ==
LOC: CHSTREATRM 09:47
PROVIDERS: PCP Family Medicine; Visit Provider Internal Medicine Hematology & Oncology
DX: Z51.11 Encounter for antineoplastic chemotherapy (principal); C66.2 Malignant neoplasm of left ureter
CPT/HCPCS: 96367; 96375; 96413; 96415; 96417; J1100; J1200; J2405; J7040; J7050; J9201; J9267

== ENCOUNTER 2021-02-17 10:04 | Outpatient (CLI) | payer MEDICARE, SELFPAY ==
[2021-02-17 10:31] VITALS: BP 155/79; PULSE 68; RESP 14; TEMP 36.8; O2SAT 97; BMI 24.1
[2021-02-17 10:50] LABS: Alanine Aminotransferase 42 U/L (16-63); Albumin Level 3.1 g/dL (3.4-5.0); Alkaline Phosphatase 43 U/L (46-116); Anion Gap 10 mmol/L (8-16); Aspartate Amino Transferase 18 U/L (15-37); Bilirubin,Total 0.2 mg/dL (0.00-1.00); Blood Urea Nitrogen 18 mg/dL (7-18); Carbon Dioxide 27 mmol/L (21-32); Chloride 101 mmol/L (98-108); Estimated CRCL calculation 37 ml/min; Estimated Glomerular Filt Rate 53; Glucose 97 mg/dL (70-99); Osmolality Calculated 287 mOsm/kg (285-295); Potassium 4.2 mmol/L (3.5-5.1); Sodium 138 mmol/L (136-145); Total Protein 6.6 g/dL (6.4-8.2)
[2021-02-17] MEDS: SODIUM CHLORIDE 0.9% IV 250 ML 10 ML IVPB (11:00)
[2021-02-17 11:06] LABS: Hematocrit 29.8 % (37.0-46.0); Hemoglobin 9.7 g/dL (12.4-15.3); Mean Corpuscular HGB Conc 32.6 g/dL (32.0-36.0); Mean Corpuscular Volume 101.4 fL (78.0-102.0); Mean Platelet Volume 10.1 fl (8.7-11.0); Platelet Count Result 441 K/mm3 (150-420); Red Blood Count 2.94 M/mm3 (4.70-6.10); Red Cell Distribution Width 14.7 % (11.6-14.4); White Blood Count 3.3 K/mm3 (4.8-10.8)
[2021-02-17 11:13] LABS: Band Neutrophils Percent 0 % (0-6); Eosinophils Absolute Manual 0.06 K/mm3 (0.02-0.5); Eosinophils Percent Manual 2 % (1-6); Lymphocytes Absolute Manual 1.12 K/mm3 (1.1-4.5); Lymphocytes Percent Manual 34 % (18-44); Monocytes Absolute Manual 0.09 K/mm3 (0.1-0.90); Monocytes Percent Manual 3 % (3-9); Neutrophils Absolute Manual 2.01 K/mm3 (1.3-6.7); Neutrophils Percent Manual 61 % (46-73); Total Cells Counted 100
[2021-02-17] MEDS: SODIUM CHLORIDE 0.9% IVPB (12:00)
[2021-02-17] MEDS: GEMCITABINE HCL IVPB (12:00)
--- NOTE | 2021-02-17 12:11 | PC.NURSE ---
Addendum entered by Zahida Lujan RN 02/17/21 12:45: Will return next 4 days for Zarxio injection. Original Note: Patient here for cycle 4 day 8 of Chemo regime. Labs drawn. Ok'd for chemo administration. Education given on meds having today with understanding. Daughter with patient. Chemo regime administered (SEE MAR). Tolerated chemo well. Will return next 4 days for Zarxio infection. Safe exit of hospital.
[2021-02-17] MEDS: HEPARIN SODIUM LOCK FLUSH 500 UNITS/5 ML SYRINGE IV PUSH (12:27)
== END 2021-02-17 10:05 | disposition home or self-care (01) ==
LOC: CHSTREATRM 10:07
PROVIDERS: PCP Family Medicine; Visit Provider Internal Medicine Hematology & Oncology
DX: Z51.11 Encounter for antineoplastic chemotherapy (principal); C66.2 Malignant neoplasm of left ureter
CPT/HCPCS: 36415; 80053; 85025; 96365; 96367; 96413; J1100; J2405; J7050; J9201

== ENCOUNTER 2021-02-18 09:46 | Outpatient (CLI) | payer MEDICARE, SELFPAY ==
[2021-02-18] MEDS: FILGRASTIM-SNDZ 480 MCG/0.8 ML SYRINGE SUB-Q (09:59)
[2021-02-18 10:02] VITALS: BP 158/64; PULSE 81; RESP 18; TEMP 37.1; O2SAT 96; BMI 27.3
--- NOTE | 2021-02-18 10:05 | PC.NURSE ---
Patient here for Zarxio injection, 480mcg/0.8ml SQ given right upper outer arm. Patient tolerated injection well. No redness or induration noted. Reviewed side effects of medication with patient. Patient verbalized understanding. Patient is aware to follow up tomorrow for next Zarxio injection. Patient safely ambulated independently out of facility. --Sol Sharp RN
== END 2021-02-18 09:47 | disposition home or self-care (01) ==
LOC: CHSTREATRM 09:49
PROVIDERS: PCP Family Medicine; Visit Provider Internal Medicine Hematology & Oncology
DX: C66.2 Malignant neoplasm of left ureter (principal); D70.1 Agranulocytosis secondary to cancer chemotherapy
CPT/HCPCS: 96372; Q5101

== ENCOUNTER 2021-02-19 09:54 | Outpatient (CLI) | payer MEDICARE, SELFPAY ==
[2021-02-19] MEDS: FILGRASTIM-SNDZ 480 MCG/0.8 ML SYRINGE SUB-Q (10:30)
== END 2021-02-19 09:55 | disposition home or self-care (01) ==
LOC: CHSTREATRM 09:56
PROVIDERS: PCP Family Medicine; Visit Provider Internal Medicine Hematology & Oncology
DX: C66.2 Malignant neoplasm of left ureter (principal); D70.1 Agranulocytosis secondary to cancer chemotherapy
CPT/HCPCS: 96372; Q5101

== ENCOUNTER 2021-02-20 09:57 | Outpatient (CLI) | payer MEDICARE, SELFPAY ==
[2021-02-20] MEDS: FILGRASTIM-SNDZ 480 MCG/0.8 ML SYRINGE SUB-Q (10:08)
== END 2021-02-20 09:58 | disposition home or self-care (01) ==
LOC: CHSTREATRM 10:01
PROVIDERS: PCP Family Medicine; Visit Provider Internal Medicine Hematology & Oncology
DX: C66.2 Malignant neoplasm of left ureter (principal); D70.1 Agranulocytosis secondary to cancer chemotherapy
CPT/HCPCS: 96372; Q5101

== ENCOUNTER 2021-02-21 09:48 | Outpatient (CLI) | payer MEDICARE, SELFPAY ==
[2021-02-21 10:00] VITALS: BP 135/84; PULSE 76; RESP 14; O2SAT 97; BMI 25.6
[2021-02-21] MEDS: FILGRASTIM-SNDZ 480 MCG/0.8 ML SYRINGE SUB-Q (10:04)
--- NOTE | 2021-02-21 10:07 | PC.NURSE ---
Patient here for Zarxio injection #4 of 4 post chemo last week. Will have scans done on end of this week. Have tele conference with Dr. Lorenzo. Will have cycle 5 chemo Mar [address] Lorenzo. Safe exit of hospital.
== END 2021-02-21 09:49 | disposition home or self-care (01) ==
LOC: CHSTREATRM 09:52
PROVIDERS: PCP Family Medicine; Visit Provider Internal Medicine Hematology & Oncology
DX: D70.1 Agranulocytosis secondary to cancer chemotherapy (principal); C66.2 Malignant neoplasm of left ureter
CPT/HCPCS: 96372; Q5101

== ENCOUNTER 2021-02-23 08:05 | Outpatient (CLI) | payer MEDICARE, SELFPAY ==
--- NOTE | ~2021-02-23 | CT_ITS ---
EXAMINATION: CT chest abdomen pelvis w con DATE: 02/23/2021 08:58 INDICATION: Transitional cell carcinoma of kidney restaging TECHNIQUE: Computed tomography (CT) of the chest, abdomen, and pelvis was performed with 100 cc Omnip aque 350 intravenous contrast. Automated exposure control and iterative reconstruction technique were employed. Exam dose: 568.30 mGy-cm total exam DLP. COMPARISON: 05/25/2020 CT abdomen pelvis 05/25/2022 view chest: FINDINGS: CHEST CT: Bilateral gynecomastia. There is mild bilateral apical scarring. There are couple of focal areas of groundglass infiltrate in the right upper lobe is mild discoid atelectasis or scarring right upper lobe, middle lobe and right lower lobe. Normal heart size. No pericardial or pleural effusion. Normal size and enhancement of the thyroid gland. No thoracic aortic aneurysm or dissection. There is aortic, great vessel and coronary artery calcification. No hilar or mediastinal mass lesion or lymphadenopathy. Right-sided Port-A-Cath catheter in superior vena cava. ABDOMEN/PELVIS CT: The liver, gallbladder, spleen, pancreas and the bile ducts and pancreatic duct are unremarkable. Normal morphology of the adrenal glands. There is extensive scarring of the right kidney consistent with chronic pyelonephritis. No right ann marie l mass lesion or right urinary tract calculus or hydroureteronephrosis is detected. There is a large irregular hypoenhancing mass of the left kidney which extends further along the lef t renal artery and left renal vein and extends superiorly into greater proximity with the left adrena l gland compared to 05/25/2020. Tumor approximates the left psoas muscle. There is adjacent left retro peritoneal lymphadenopathy measuring under 7.2 x 11.7 mm. Status post cystectomy and ileostomy. 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 Reviewed, dictated and finalized at location B. IMPRESSION: Further progression of left renal transitional cell carcinoma sinc e 05/25/2020 Status post cystectomy and ileostomy Chronic right pyelonephritis
[2021-02-23 08:35] LABS: Estimated Glomerular Filt Rate 49
== END 2021-02-23 08:06 | disposition home or self-care (01) ==
PROVIDERS: PCP Family Medicine; Visit Provider Internal Medicine Hematology & Oncology
DX: C64.9 Malignant neoplasm of unspecified kidney, except renal pelvis (principal)
CPT/HCPCS: 71260; 74177; Q9967

== ENCOUNTER 2021-02-28 18:24 | Emergency (ER) | payer MEDICARE, SELFPAY ==
--- NOTE | 2021-02-28 19:58 | ED.GIBLEED ---
HPI - GI Bleed General Chief complaint: Nausea/Vomiting/Diarrhea Stated complaint: black stool, nausea Time Seen by Provider: 02/28/21 19:58 Source: patient Mode of arrival: ambulatory Limitations: no limitations History of Present Illness HPI Narrative: 80-year-old man comes in today complaining of epigastric discomfort, dry heaves and nausea that started earlier today. Patient states that he has had black stools off and on for the last month or 2. He denies lightheadedness, shortness breath, chest pain, vomiting, fever, diarrhea, red blood in his stool, cough or cold symptoms, or weakness. He is currently undergoing chemotherapy for kidney cancer and is due to have a left nephrectomy. He has a history of peptic ulcer disease and a fundoplication surgery. Patient states that he sometimes takes Pepto-Bismol for upset stomach. MD complaint: melena Onset (ago): month(s) Pain Consistency: intermittent Severity: moderate Relieving factors: none Exacerbating factors: none Context: history of GI bleed Associated symptoms: abdominal pain and nausea Treatments Prior to Arrival: none Related Data Home Medications Medication Instructions Recorded Confirmed amlodipine 5 mg PO DAILY 10/28/20 02/28/21 atorvastatin 20 mg PO HS 10/28/20 02/28/21 sertraline 50 mg PO DAILY 10/28/20 02/28/21 aspirin [Adult Aspirin EC Low 81 mg PO DAILY 11/05/20 02/28/21 Strength] gabapentin 100 mg PO DAILY 11/05/20 02/28/21 loratadine [Claritin] 10 mg PO DAILY 11/05/20 02/28/21 Allergies Allergy/AdvReac Type Severity Reaction Status Date / Time No Known Allergies Allergy Verified 06/22/16 10:45 Review of Systems Review of Systems: All systems reviewed & are unremarkable except as noted in HPI and below Constitutional: Constitutional: Denies chills and Denies fever(s) Eyes: Eyes: Denies change in vision and Denies photophobia ENT: Denies nasal congestion and Denies sore throat Cardiovascular: Cardiovascular: Denies chest pain and Denies radiating jaw, neck or arm pain Respiratory: Respiratory: Denies cough and Denies dyspnea Gastrointestinal: Gastrointestinal: Reports as per HPI, Reports abdominal pain, Denies diarrhea, Reports nausea and Denies vomiting Genitourinary: Comments: History of nephrostomy for bladder cancer Musculoskeletal: Musculoskeletal: Denies back pain, Denies arthralgias and Denies joint swelling Integumentary/Breasts: Skin/Breast: Denies pruritus, Denies erythema and Denies rash Neurologic: Denies dizziness, Denies syncope, Denies headache(s) and Denies weakness Hematologic/Lymphatic: Hematologic/Lymphatic: Denies easy bleeding and Denies easy bruising Allergic/Immunologic: Allergic/Immunologic: Denies lip swelling and Denies tongue swelling PMFSH Past Medical History Medical History (Updated 02/28/21 @ 23:00 by Aureliano Sanchez MD) Bladder cancer Cancer of kidney Dyslipidemia Hypertension Surgical History Surgical History (Updated 02/28/21 @ 20:20 by Aureliano Sanchez MD) History of fundoplication Nephrostomy status Family History Family History (Updated 06/25/18 @ 00:00 by CONVUSER Aristides) Sibling Hypertension Patient's brother is in good health Malignant neoplasm of prostate Mother Cerebrovascular accident, Onset Age: 92 Patient's mother is Father Patient's father is Father Acute myocardial infarction Other Family history of arthritis Family history of malignant neoplasm Social History Social History Smoking status: Never smoker Smoking end date: 07/23/86 Alcohol intake: current Exam Const: General: no acute distress, alert and ill appearing chronically (Mild) Orientation/consciousness: patient oriented x3 HENMT: Head: normal to inspection Ears: EAC's normal Face and sinus: normal facial exam Mouth: Yes moist mucous membranes Throat: posterior oropharynx normal Eyes: Conjunctivae: conjunctivae normal Pupils: Equ
[2021-02-28 20:00] VITALS: BP 181/82; PULSE 77; RESP 20; TEMP 37.3; O2SAT 97
[2021-02-28 20:35] LABS: Hematocrit 28.8 % (37.0-46.0); Hemoglobin 9.4 g/dL (12.4-15.3); Mean Corpuscular HGB Conc 32.6 g/dL (32.0-36.0); Mean Corpuscular Hemoglobin 32.9 pg (27.0-31.0); Mean Corpuscular Volume 100.7 fL (78.0-102.0); Mean Platelet Volume 9.7 fl (8.7-11.0); Platelet Count Result 194 K/mm3 (150-420); Red Blood Count 2.86 M/mm3 (4.70-6.10); Red Cell Distribution Width 15.8 % (11.6-14.4); White Blood Count 11.2 K/mm3 (4.8-10.8)
[2021-02-28] MEDS: ONDANSETRON INJ 4 MG/2 ML VIAL IV PUSH ×2 (20:45→21:25)
[2021-02-28] MEDS: SODIUM CHLORIDE 0.9% IV 500 ML 999 ML IV CONT (20:45)
[2021-02-28] MEDS: PANTOPRAZOLE SODIUM IV 40 MG VIAL 80 MG IV PUSH (20:48)
[2021-02-28 20:50] VITALS: BP 171/82; PULSE 75
[2021-02-28 20:51] LABS: Partial Thromboplastin Time 31.8 SEC (23.90-30.70); Prothrombin Time 10.9 Seconds (9.50-12.10)
[2021-02-28 20:52] VITALS: BP 176/93; PULSE 80
[2021-02-28 21:05] LABS: Band Neutrophils Percent 2 % (0-6); Basophils Absolute Manual 0.11 K/mm3 (0-0.1); Basophils Percent Manual 1 % (0-1); Eosinophils Absolute Manual 0.44 K/mm3 (0.02-0.5); Eosinophils Percent Manual 4 % (1-6); Lymphocytes Absolute Manual 0.89 K/mm3 (1.1-4.5); Lymphocytes Percent Manual 8 % (18-44); Metamyelocytes Percent 2 %; Monocytes Absolute Manual 1.34 K/mm3 (0.1-0.90); Monocytes Percent Manual 12 % (3-9); Neutrophils Absolute Manual 8.17 K/mm3 (1.3-6.7); Neutrophils Percent Manual 71 % (46-73); Total Cells Counted 100
[2021-02-28 21:06] LABS: Platelet Estimate Adequate (Adequate)
[2021-02-28 21:07] LABS: Alanine Aminotransferase 32 U/L (16-63); Albumin Level 3.1 g/dL (3.4-5.0); Alkaline Phosphatase 56 U/L (46-116); Anion Gap 10 mmol/L (8-16); Bilirubin,Total 0.2 mg/dL (0.00-1.00); Blood Urea Nitrogen 20 mg/dL (7-18); Calcium 8.6 mg/dL (8.5-10.1); Carbon Dioxide 26 mmol/L (21-32); Chloride 103 mmol/L (98-108); Estimated Glomerular Filt Rate 50; Glucose 104 mg/dL (70-99); Osmolality Calculated 290 mOsm/kg (285-295); Potassium 4.2 mmol/L (3.5-5.1); Sodium 139 mmol/L (136-145); Total Protein 6.8 g/dL (6.4-8.2)
[2021-02-28 21:13] LABS: Estimated CRCL calculation 35 ml/min
[2021-02-28 21:14] LABS: Occult Blood Negative (Negative)
--- NOTE | 2021-02-28 21:17 | ECG_ITS ---
Measurements Intervals [place] Rate: 73 P: 64 IL: 166 QRS: 8 QRSD: 100 T: 58 QT: 392 QTc: 434 Interpretive Statements SINUS RHYTHM NORMAL ECG Electronically Signed On 03-01-2021 6:04:20 CDT by Herminio Gaona D.O.
[2021-02-28 21:43] LABS: Lactic Acid Reflex 0.4 mmol/L (0.4-2.0); Troponin I 5.4 ng/L (0.00-60.4)
[2021-02-28 22:41] LABS: Appearance Urine Cloudy (Clear); Bilirubin Urine Negative (Negative); Glucose Urine UA Negative (Negative); Ketones Urine Negative (Negative); Leukocyte Esterase Ur Trace (Negative); Nitrate Urine Positive (Negative); Protein Urine 2+ (Negative); Specific Grav Ur 1.015 (1.010-1.020); Urobilinogen Urine 0.2 mg/dL (0.2-1.0); pH Urine 8.5 (5.0-8.0)
[2021-02-28 22:49] VITALS: BP 172/86; PULSE 74; RESP 18; TEMP 36.8; O2SAT 98
[2021-02-28 22:56] LABS: Add Urine Microscopic? YES; Amorphous Sediment Urine Moderate; Bacteria Urine 3+ /hpf; Blood Urine Trace (Negative); Color Urine Yellow (Yellow); RBC Urine 0-2 /hpf (0-2); Triple Phosphate Crystal Urine Present /hpf
[2021-02-28 23:24] LABS: Aspartate Amino Transferase 24 U/L (15-37)
== END 2021-02-28 23:10 | disposition home or self-care (01) ==
PROVIDERS: Emergency Provider Emergency Medicine; PCP Family Medicine
DX: R11.0 Nausea (principal); R82.81 Pyuria; Z85.51 Personal history of malignant neoplasm of bladder; E78.5 Hyperlipidemia, unspecified; I10 Essential (primary) hypertension
CPT/HCPCS: 36415; 80053; 81001; 82272; 83605; 84484; 85025; 85610; 85730; 87040; 87086; 87088; 93005; 96361; 96374; 96375; 99283; 99284; C9113; J2405; J7040

== ENCOUNTER 2021-03-29 09:40 | Outpatient (CLI) | payer MEDICARE, SELFPAY ==
--- NOTE | ~2021-03-29 | XR_ITS ---
EXAMINATION: XR chest 2V EXAM DATE: 03/29/2021 10:19 INDICATION: Pre Op, sob on exertion. TECHNIQUE: Frontal and lateral projections of the chest obtained and reviewed. Comparison is made to prior examination from 05/25/2020. FINDINGS: There is a CT injectable right-sided portacatheter The lungs are hyperinflated which can b e seen with chronic obstructive pulmonary disease (a clinical diagnosis of functional impairment), bu t is not diagnostic of it. No confluent consolidation, pneumothorax or pleural effusion suspected. Ca rdiomediastinal silhouette is normal. There is no significant interval change. IMPRESSION: Chronic hyperinflation. Reviewed, dictated and finalized at location A. IMPRESSION: Chronic hyperinflation.
--- NOTE | 2021-03-29 10:05 | ECG_ITS ---
Measurements Intervals [place] Rate: 69 P: 73 TN: 170 QRS: 25 QRSD: 90 T: 60 QT: 392 QTc: 420 Interpretive Statements SINUS RHYTHM NORMAL ECG Electronically Signed On 03-29-2021 10:13:59 CDT by Herminio Gaona D.O.
== END 2021-03-29 09:41 | disposition home or self-care (01) ==
PROVIDERS: PCP Family Medicine; Visit Provider Family Medicine
DX: Z01.818 Encounter for other preprocedural examination (principal)
CPT/HCPCS: 71046; 93005

== ENCOUNTER 2021-04-18 11:26 | Emergency (ER) | payer MEDICARE, SELFPAY ==
--- NOTE | ~2021-04-18 | CT_ITS ---
EXAMINATION: CT chest abdomen pelvis wo con EXAM DATE: 04/18/2021 13:02 INDICATION: Post nephrectomy for transitional cell cancer, left abdominal pain Passing Air ,S/O Lt N ephrectomy X1wk Ago, nausea. TECHNIQUE: Spiral CT of the chest, abdomen and pelvis was performed without contrast. Axial, schmidt l and sagittal images chest, abdomen and pelvis were reviewed. Coronal maximum intensity pixel image s of chest reviewed. The dose-length product (DLP) for this examination was 413.43 mGy-cm. The expo sure was tailored according to patient size (auto mA exposure control), and iterative reconstruction (ASIR) was used as additional dose reduction technique. Comparison is made to prior examination from 02/23/2021. FINDINGS: CHEST: There is a right-sided portacatheter. There our scattered foci of subcutaneous gas in the axi lla as and surrounding the anterior and lateral aspects of the abdominal wall. There are no pleural or pericardial effusions. Tracheobronchial tree is patent. There is no mediastinal, hilar or axil maddi lymphadenopathy. There is no pneumothorax. Heart normal in size. There is mild to moderate coronary arterial calcification, arterial sclerosis. Chronic hyperinflation. ABDOMEN PELVIS: The liver, spleen, adrenal glands and pancreas are unremarkable. Gallbladder is unre markable. No biliary obstruction. Surgical changes from left-sided nephrectomy with some inflammati on in the nephrectomy bed but no hematoma or organized abscess. There is no right-sided nephrolithias is or hydronephrosis. The bladder and possibly prostate have been resected. There is no retroperiton eal or pelvic lymphadenopathy. There are laparotomy mahamed. There is right lower quadrant ileostomy, could be an ileal pouch, conduit. The appendix is not positi vely visualized. There is no pericecal inflammatory change to suggest appendicitis. There is extens gloria sigmoid predominant colonic diverticulosis. No suspicion of acute diverticulitis. There is modera te amount of colonic stool. No free intraperitoneal gas. There are no osteoblastic or osteolytic lesions identified. There is mild thoracic dextroscoliosis. IMPRESSION: 1. Surgical changes from recent left nephrectomy. Moderate subcutaneous gas along abdomen and chest subcutaneous tissues probably postoperative. 2. Additional surgical changes from prior bladder resection, probable prostate resection and ileal c onduit. 3. Moderate colonic stool. 4. Colonic diverticulosis. Other chronic findings. Reviewed, dictated and finalized at location A. IMPRESSION: 1. Surgical changes from recent left nephrectomy. Moderate subcutaneous gas al kamar abdomen and chest subcutaneous tissues probably postoperative. 2. Additional surgical changes from prior bladder resection, probable prostate resection and ileal conduit. 3. Moderate colonic stool. 4. Colonic diverticulosis. Other chronic findings.
[2021-04-18 11:50] VITALS: BP 133/84; PULSE 81; RESP 14; TEMP 37.2; O2SAT 96
[2021-04-18 11:52] VITALS: PULSE 75
[2021-04-18 12:47] LABS: Basophils Absolute Auto 0.05 K/mm3 (0.00-0.10); Basophils Percent Auto 0.5 % (0.0-1.0); Eosinophils Absolute Auto 0.76 K/mm3 (0.02-0.50); Eosinophils Percent Auto 7.9 % (1.0-6.0); Hematocrit 32.9 % (37.0-46.0); Hemoglobin 10.5 g/dL (12.4-15.3); Immature Granulocyte Absolute 0.09 K/mm3 (0.00-0.00); Immature Granulocyte Percent A 0.9 % (0.0-0.0); Lymphocytes Absolute Auto 1.25 K/mm3 (1.10-4.50); Mean Corpuscular HGB Conc 31.9 g/dL (32.0-36.0); Mean Corpuscular Hemoglobin 30.8 pg (27.0-31.0); Mean Corpuscular Volume 96.5 fL (78.0-102.0); Mean Platelet Volume 8.9 fl (8.7-11.0); Monocytes Absolute Auto 0.56 K/mm3 (0.10-0.90); Monocytes Percent Auto 5.8 % (2.0-11.0); Neutrophils Absolute Auto 6.9 K/mm3 (1.7-7.2); Neutrophils Percent Auto 71.9 % (50.0-70.0); Platelet Count Result 555 K/mm3 (150-420); Red Blood Count 3.41 M/mm3 (4.70-6.10); Red Cell Distribution Width 14.3 % (11.6-14.4); White Blood Count 9.6 K/mm3 (4.8-10.8)
[2021-04-18 13:02] LABS: Alanine Aminotransferase 20 U/L (16-63); Albumin Level 3.4 g/dL (3.4-5.0); Alkaline Phosphatase 50 U/L (46-116); Anion Gap 8 mmol/L (8-16); Aspartate Amino Transferase 12 U/L (15-37); Bilirubin,Total 0.4 mg/dL (0.00-1.00); Blood Urea Nitrogen 22 mg/dL (7-18); Calcium 9.2 mg/dL (8.5-10.1); Carbon Dioxide 28 mmol/L (21-32); Chloride 99 mmol/L (98-108); Estimated CRCL calculation 29 ml/min; Estimated Glomerular Filt Rate 44; Glucose 95 mg/dL (70-99); Osmolality Calculated 283 mOsm/kg (285-295); Potassium 4.6 mmol/L (3.5-5.1); Sodium 135 mmol/L (136-145); Total Protein 7.2 g/dL (6.4-8.2)
[2021-04-18] MEDS: ACETAMINOPHEN 325 MG TABLET 650 MG PO (13:31)
[2021-04-18 13:47] LABS: Add Urine Microscopic? YES; Appearance Urine Clear (Clear); Bilirubin Urine Negative (Negative); Blood Urine Negative (Negative); Color Urine Light Yellow (Yellow); Glucose Urine UA Negative (Negative); Ketones Urine Trace (Negative); Leukocyte Esterase Ur Trace (Negative); Nitrate Urine Negative (Negative); Protein Urine 1+ (Negative); Specific Grav Ur 1.015 (1.010-1.020); Urobilinogen Urine 0.2 mg/dL (0.2-1.0); pH Urine 7.5 (5.0-8.0)
[2021-04-18 13:52] LABS: RBC Urine None seen /hpf (0-2)
[2021-04-18 13:53] LABS: Bacteria Urine 2+ /hpf
--- NOTE | 2021-04-18 16:25 | PC.NURSE ---
dr. atkins contacted erp back at this time for consultation
--- NOTE | 2021-04-18 16:26 | ED.GENADULT ---
HPI - General Adult General Chief complaint: Unspecified Stated complaint: home health sent Time Seen by Provider: 04/18/21 11:28 Source: patient and RN notes reviewed Mode of arrival: ambulatory Limitations: no limitations History of Present Illness complaint: left lateral chest subcutaneous crackling. recent endoscopic surgery to l Onset (ago): day(s) (2) Location: chest, back and left Radiation: non-radiation Severity: mild Severity scale (1-10): 4 Quality: other (crackling subcutaneous sensation) Pain Consistency: other (no acute pain.) Relieving factors: none Exacerbating factors: none Associated symptoms: denies other symptoms Treatments prior to arrival: none Related Data Home Medications Medication Instructions Recorded Confirmed atorvastatin 20 mg PO HS 10/28/20 04/18/21 sertraline 50 mg PO DAILY 10/28/20 04/18/21 aspirin [Adult Aspirin EC Low 81 mg PO DAILY 11/05/20 04/18/21 Strength] gabapentin 100 mg PO DAILY 11/05/20 04/18/21 loratadine [Claritin] 10 mg PO DAILY 11/05/20 04/18/21 amlodipine 10 mg PO DAILY 04/18/21 04/18/21 hydrocodone-acetaminophen 1 tablet PO Q6-12H PRN 04/18/21 04/18/21 nitrofurantoin monohyd/m-cryst 100 mg PO BID 04/18/21 04/18/21 Allergies Allergy/AdvReac Type Severity Reaction Status Date / Time No Known Allergies Allergy Verified 06/22/16 10:45 Review of Systems Review of Systems: All systems reviewed & are unremarkable except as noted in HPI and below PMFSH Past Medical History Medical History Bladder cancer Cancer of kidney Dyslipidemia Hypertension Surgical History Surgical History History of fundoplication Nephrostomy status Family History Family History Sibling Hypertension Patient's brother is in good health Malignant neoplasm of prostate Mother Cerebrovascular accident, Onset Age: 92 Patient's mother is Father Patient's father is Father Acute myocardial infarction Other Family history of arthritis Family history of malignant neoplasm Social History Social History Smoking status: Never smoker Smoking end date: 07/23/86 Alcohol intake: current Exam Const: General: cooperative, healthy appearing, no acute distress and well developed Nutritional Appearance: average body habitus Orientation/consciousness: patient oriented x3 Limitations: no limitations HENMT: Head: normal to inspection, No palpable skull fracture present, normocephalic and atraumatic Ears: hearing grossly normal bilaterally, external ears normal and TM's normal bilaterally General nose exam: Normal external nose present and Normal nares present Face and sinus: normal facial exam Mouth: Yes Normal oral and palatal mucosa present and Yes moist mucous membranes Throat: posterior oropharynx normal Eyes: General: appearance normal, both eyes and all related structures Eyelids: eyelids normal Conjunctivae: conjunctivae normal Sclera: sclerae normal Cornea: corneas normal Pupils: Equal, round and reactive pupils present EOM: EOMs intact bilaterally Neck: Neck: normal visual inspection and no lymphadenopathy Chest: Chest palpation & inspection: normal inspection of the chest and other (left lateral localized subcutaneous emphysema. no acute resp abnormality) Resp: Effort & Inspection: normal respiratory effort and able to speak in complete sentences Auscultation: clear to auscultation bilaterally Cardio: Jugular venous distension: no JVD Rate: regular rate Rhythm: regular rhythm Heart sounds: S1 normal heart sound present and S2 normal heart sound present Peripheral pulses: Peripheral pulses 2+ throughout GI: Inspection: normal to inspection GI Palp: No abdominal tenderness Auscultation: normal
[2021-04-18 16:30] VITALS: BP 154/84; PULSE 73; RESP 14; O2SAT 98
== END 2021-04-18 16:54 | disposition home or self-care (01) ==
PROVIDERS: Emergency Provider Emergency Medicine; PCP Family Medicine
DX: T81.82XA Emphysema (subcutaneous) resulting from a procedure, initial encounter (principal); N39.0 Urinary tract infection, site not specified; Z85.51 Personal history of malignant neoplasm of bladder; E78.5 Hyperlipidemia, unspecified; I10 Essential (primary) hypertension
CPT/HCPCS: 36415; 71250; 74176; 80053; 81001; 85025; 96365; 99283; 99284; A9270; J0696

== ENCOUNTER 2021-04-28 10:00 | Outpatient (CLI) | payer MEDICARE, SELFPAY ==
[2021-04-28 10:13] LABS: Hematocrit 34.7 % (37.0-46.0); Hemoglobin 11.2 g/dL (12.4-15.3); Mean Corpuscular HGB Conc 32.3 g/dL (32.0-36.0); Mean Corpuscular Hemoglobin 31.6 pg (27.0-31.0); Platelet Count Result 288 K/mm3 (150-420); Red Blood Count 3.54 M/mm3 (4.70-6.10); Red Cell Distribution Width 14.2 % (11.6-14.4)
[2021-04-28 10:55] LABS: Band Neutrophils Percent 0 % (0-6); Eosinophils Absolute Manual 1.26 K/mm3 (0.02-0.5); Eosinophils Percent Manual 18 % (1-6); Lymphocytes Absolute Manual 1.82 K/mm3 (1.1-4.5); Lymphocytes Percent Manual 26 % (18-44); Monocytes Absolute Manual 0.35 K/mm3 (0.1-0.90); Monocytes Percent Manual 5 % (3-9); Neutrophils Absolute Manual 3.57 K/mm3 (1.3-6.7); Neutrophils Percent Manual 51 % (46-73); Platelet Estimate Adequate (Adequate); Total Cells Counted 100
[2021-04-28 10:57] LABS: Alanine Aminotransferase 31 U/L (16-63); Albumin Level 3.6 g/dL (3.4-5.0); Alkaline Phosphatase 41 U/L (46-116); Anion Gap 12 mmol/L (8-16); Aspartate Amino Transferase 16 U/L (15-37); Bilirubin,Total 0.4 mg/dL (0.00-1.00); Blood Urea Nitrogen 23 mg/dL (7-18); Calcium 9.4 mg/dL (8.5-10.1); Carbon Dioxide 26 mmol/L (21-32); Chloride 100 mmol/L (98-108); Estimated Glomerular Filt Rate 35; Glucose 99 mg/dL (70-99); Osmolality Calculated 289 mOsm/kg (285-295); Potassium 4.8 mmol/L (3.5-5.1); Sodium 138 mmol/L (136-145); Total Protein 6.8 g/dL (6.4-8.2)
== END 2021-04-28 10:01 | disposition home or self-care (01) ==
LOC: CHSLAB 10:03
PROVIDERS: PCP Family Medicine; Visit Provider Internal Medicine Hematology & Oncology
DX: C67.9 Malignant neoplasm of bladder, unspecified (principal)
CPT/HCPCS: 36415; 80053; 85025

== ENCOUNTER 2021-06-28 11:49 | Outpatient (CLI) | payer MEDICARE, SELFPAY ==
[2021-06-28 12:06] LABS: Basophils Absolute Auto 0.04 K/mm3 (0.00-0.10); Basophils Percent Auto 0.6 % (0.0-1.0); Eosinophils Percent Auto 4.8 % (1.0-6.0); Hematocrit 39.8 % (37.0-46.0); Hemoglobin 12.3 g/dL (12.4-15.3); Immature Granulocyte Absolute 0.01 K/mm3 (0.00-0.00); Immature Granulocyte Percent A 0.2 % (0.0-0.0); Lymphocytes Absolute Auto 1.33 K/mm3 (1.10-4.50); Lymphocytes Percent Auto 21.4 % (18.0-42.0); Mean Corpuscular HGB Conc 30.9 g/dL (32.0-36.0); Mean Corpuscular Hemoglobin 30.1 pg (27.0-31.0); Mean Corpuscular Volume 97.3 fL (78.0-102.0); Mean Platelet Volume 9.6 fl (8.7-11.0); Monocytes Absolute Auto 0.62 K/mm3 (0.10-0.90); Neutrophils Absolute Auto 3.9 K/mm3 (1.7-7.2); Platelet Count Result 277 K/mm3 (150-420); Red Blood Count 4.09 M/mm3 (4.70-6.10); Red Cell Distribution Width 13.8 % (11.6-14.4); White Blood Count 6.2 K/mm3 (4.8-10.8)
[2021-06-28 13:31] LABS: Alanine Aminotransferase 21 U/L (16-63); Albumin Level 3.6 g/dL (3.4-5.0); Alkaline Phosphatase 46 U/L (46-116); Anion Gap 12 mmol/L (8-16); Aspartate Amino Transferase 13 U/L (15-37); Bilirubin,Total 0.3 mg/dL (0.00-1.00); Blood Urea Nitrogen 26 mg/dL (7-18); Calcium 9.1 mg/dL (8.5-10.1); Carbon Dioxide 26 mmol/L (21-32); Chloride 102 mmol/L (98-108); Estimated Glomerular Filt Rate 37; Glucose 91 mg/dL (70-99); Osmolality Calculated 294 mOsm/kg (285-295); Potassium 4.9 mmol/L (3.5-5.1); Sodium 140 mmol/L (136-145); Total Protein 7.1 g/dL (6.4-8.2)
== END 2021-06-28 11:50 | disposition home or self-care (01) ==
LOC: CHSLAB 11:55
PROVIDERS: PCP Family Medicine; Visit Provider Internal Medicine Hematology & Oncology
DX: C61 Malignant neoplasm of prostate (principal)
CPT/HCPCS: 36415; 80053; 85025

== ENCOUNTER 2021-08-04 12:51 | Outpatient (CLI) | payer MEDICARE, SELFPAY ==
[2021-08-04 13:28] LABS: Basophils Absolute Auto 0.05 K/mm3 (0.00-0.10); Basophils Percent Auto 0.8 % (0.0-1.0); Eosinophils Absolute Auto 0.33 K/mm3 (0.02-0.50); Eosinophils Percent Auto 5.5 % (1.0-6.0); Hemoglobin 12.4 g/dL (12.4-15.3); Immature Granulocyte Absolute 0.03 K/mm3 (0.00-0.00); Immature Granulocyte Percent A 0.5 % (0.0-0.0); Lymphocytes Absolute Auto 1.41 K/mm3 (1.10-4.50); Lymphocytes Percent Auto 23.5 % (18.0-42.0); Mean Corpuscular HGB Conc 32.6 g/dL (32.0-36.0); Mean Corpuscular Hemoglobin 30.6 pg (27.0-31.0); Mean Corpuscular Volume 93.8 fL (78.0-102.0); Mean Platelet Volume 9.3 fl (8.7-11.0); Monocytes Absolute Auto 0.64 K/mm3 (0.10-0.90); Monocytes Percent Auto 10.6 % (2.0-11.0); Neutrophils Absolute Auto 3.6 K/mm3 (1.7-7.2); Neutrophils Percent Auto 59.1 % (50.0-70.0); Platelet Count Result 267 K/mm3 (150-420); Red Blood Count 4.05 M/mm3 (4.70-6.10); Red Cell Distribution Width 13.2 % (11.6-14.4)
[2021-08-04 14:31] LABS: Alanine Aminotransferase 17 U/L (16-63); Albumin Level 3.7 g/dL (3.4-5.0); Alkaline Phosphatase 46 U/L (46-116); Anion Gap 12 mmol/L (8-16); Aspartate Amino Transferase 14 U/L (15-37); Bilirubin,Total 0.3 mg/dL (0.00-1.00); Blood Urea Nitrogen 26 mg/dL (7-18); Calcium 9.2 mg/dL (8.5-10.1); Carbon Dioxide 25 mmol/L (21-32); Chloride 100 mmol/L (98-108); Estimated Glomerular Filt Rate 35; Glucose 93 mg/dL (70-99); Osmolality Calculated 288 mOsm/kg (285-295); Potassium 4.6 mmol/L (3.5-5.1); Sodium 137 mmol/L (136-145); Total Protein 7.1 g/dL (6.4-8.2)
== END 2021-08-04 12:52 | disposition home or self-care (01) ==
LOC: CHSLAB 12:55
PROVIDERS: PCP Family Medicine; Visit Provider Internal Medicine Hematology & Oncology
DX: C61 Malignant neoplasm of prostate (principal)
CPT/HCPCS: 36415; 80053; 85025

== ENCOUNTER 2021-10-22 11:10 | Outpatient (CLI) | payer MEDICARE, SELFPAY ==
[2021-10-22 11:28] LABS: Basophils Absolute Auto 0.03 K/mm3 (0.00-0.10); Basophils Percent Auto 0.3 % (0.0-1.0); Eosinophils Absolute Auto 0.33 K/mm3 (0.02-0.50); Eosinophils Percent Auto 3.6 % (1.0-6.0); Hematocrit 37.8 % (37.0-46.0); Hemoglobin 12.1 g/dL (12.4-15.3); Immature Granulocyte Absolute 0.03 K/mm3 (0.00-0.00); Immature Granulocyte Percent A 0.3 % (0.0-0.0); Lymphocytes Absolute Auto 1.23 K/mm3 (1.10-4.50); Lymphocytes Percent Auto 13.4 % (18.0-42.0); Mean Corpuscular Volume 93.6 fL (78.0-102.0); Mean Platelet Volume 9.5 fl (8.7-11.0); Monocytes Absolute Auto 0.93 K/mm3 (0.10-0.90); Monocytes Percent Auto 10.1 % (2.0-11.0); Neutrophils Absolute Auto 6.6 K/mm3 (1.7-7.2); Neutrophils Percent Auto 72.3 % (50.0-70.0); Platelet Count Result 320 K/mm3 (150-420); Red Blood Count 4.04 M/mm3 (4.70-6.10); Red Cell Distribution Width 12.2 % (11.6-14.4); White Blood Count 9.2 K/mm3 (4.8-10.8)
[2021-10-22 12:14] LABS: Alanine Aminotransferase 21 U/L (16-63); Albumin Level 3.5 g/dL (3.4-5.0); Alkaline Phosphatase 60 U/L (46-116); Anion Gap 10 mmol/L (8-16); Aspartate Amino Transferase 14 U/L (15-37); Bilirubin,Total 0.3 mg/dL (0.00-1.00); Blood Urea Nitrogen 27 mg/dL (7-18); Calcium 9.3 mg/dL (8.5-10.1); Carbon Dioxide 26 mmol/L (21-32); Chloride 100 mmol/L (98-108); Estimated Glomerular Filt Rate 36; Glucose 94 mg/dL (70-99); Osmolality Calculated 287 mOsm/kg (285-295); Potassium 4.5 mmol/L (3.5-5.1); Sodium 136 mmol/L (136-145); Total Protein 7.2 g/dL (6.4-8.2)
[2021-10-22 12:18] LABS: Prostate Specific Antigen < 0.1 ng/mL (< OR = 4.0)
== END 2021-10-22 11:11 | disposition home or self-care (01) ==
PROVIDERS: PCP Family Medicine; Visit Provider Internal Medicine Hematology & Oncology
DX: C64.9 Malignant neoplasm of unspecified kidney, except renal pelvis (principal); Z12.5 Encounter for screening for malignant neoplasm of prostate; C61 Malignant neoplasm of prostate
CPT/HCPCS: 36415; 80053; 84153; 85025; G0103

== ENCOUNTER 2022-01-16 11:04 | Outpatient (CLI) | payer MEDICARE, SELFPAY ==
[2022-01-16 11:25] LABS: Basophils Absolute Auto 0.05 K/mm3 (0.00-0.10); Basophils Percent Auto 0.3 % (0.0-1.0); Eosinophils Absolute Auto 0.36 K/mm3 (0.02-0.50); Hematocrit 31.8 % (37.0-46.0); Hemoglobin 9.7 g/dL (12.4-15.3); Immature Granulocyte Absolute 0.11 K/mm3 (0.00-0.00); Immature Granulocyte Percent A 0.6 % (0.0-0.0); Lymphocytes Absolute Auto 1.15 K/mm3 (1.10-4.50); Lymphocytes Percent Auto 6.3 % (18.0-42.0); Mean Corpuscular HGB Conc 30.5 g/dL (32.0-36.0); Mean Corpuscular Hemoglobin 27.2 pg (27.0-31.0); Mean Corpuscular Volume 89.3 fL (78.0-102.0); Mean Platelet Volume 9.3 fl (8.7-11.0); Monocytes Absolute Auto 1.77 K/mm3 (0.10-0.90); Monocytes Percent Auto 9.7 % (2.0-11.0); Neutrophils Absolute Auto 14.7 K/mm3 (1.7-7.2); Neutrophils Percent Auto 81.1 % (50.0-70.0); Platelet Count Result 422 K/mm3 (150-420); Red Blood Count 3.56 M/mm3 (4.70-6.10); White Blood Count 18.2 K/mm3 (4.8-10.8)
[2022-01-16 11:59] LABS: Alanine Aminotransferase 19 U/L (16-63); Albumin Level 2.9 g/dL (3.4-5.0); Alkaline Phosphatase 95 U/L (46-116); Anion Gap 10 mmol/L (8-16); Aspartate Amino Transferase 20 U/L (15-37); Bilirubin,Total 0.5 mg/dL (0.00-1.00); Blood Urea Nitrogen 18 mg/dL (7-18); Calcium 9.4 mg/dL (8.5-10.1); Carbon Dioxide 22 mmol/L (21-32); Chloride 97 mmol/L (98-108); Estimated Glomerular Filt Rate 41; Glucose 101 mg/dL (70-99); Osmolality Calculated 269 mOsm/kg (285-295); Potassium 4.4 mmol/L (3.5-5.1); Sodium 129 mmol/L (136-145); Total Protein 8.1 g/dL (6.4-8.2)
[2022-01-16 12:01] LABS: Prostate Specific Antigen < 0.1 ng/mL (< OR = 4.0)
[2022-01-16 14:42] LABS: Hematocrit 31.8 % (37.0-46.0); Hemoglobin 9.7 g/dL (12.4-15.3); Mean Corpuscular HGB Conc 30.5 g/dL (32.0-36.0); Mean Corpuscular Hemoglobin 27.2 pg (27.0-31.0); Mean Corpuscular Volume 89.3 fL (78.0-102.0); Platelet Count Result 422 K/mm3 (150-420); Red Blood Count 3.56 M/mm3 (4.70-6.10); White Blood Count 18.2 K/mm3 (4.8-10.8)
[2022-01-16 14:43] LABS: Mean Platelet Volume 9.3 fl (8.7-11.0)
[2022-01-16 15:15] LABS: Ferritin 490 ng/mL (26-388); Folic Acid 19.9 ng/mL (8.6->20); Iron 38 ug/dL (65-175); Vitamin B12 907 pg/mL (193-986)
[2022-01-16 15:24] LABS: Percent Iron Saturation 7 % (12-57)
== END 2022-01-16 11:05 | disposition home or self-care (01) ==
LOC: CHSLAB 11:07
PROVIDERS: PCP Family Medicine; Visit Provider Nurse Practitioner
DX: R10.9 Unspecified abdominal pain (principal); D64.9 Anemia, unspecified; K92.1 Melena; R10.12 Left upper quadrant pain; R53.83 Other fatigue; K21.9 Gastro-esophageal reflux disease without esophagitis; K22.70 Barrett's esophagus without dysplasia; I10 Essential (primary) hypertension; C64.9 Malignant neoplasm of unspecified kidney, except renal pelvis; Z85.51 Personal history of malignant neoplasm of bladder; C61 Malignant neoplasm of prostate
CPT/HCPCS: 36415; 80053; 82607; 82728; 82746; 83540; 83550; 84153; 85025; 85027

== ENCOUNTER 2022-01-19 07:41 | Outpatient (CLI) | payer MEDICARE, OTHER, SELFPAY ==
--- NOTE | ~2022-01-19 | CT_ITS ---
EXAMINATION: CT chest abdomen pelvis w con DATE: 01/19/2022 08:15 INDICATION: Bladder cancer, cough, abdominal pain TECHNIQUE: Transaxial computed tomographic images of the chest, abdomen, and pelvis were obtained aft er the administration of 100 cc of Omnipaque 300 intravenous contrast. The dose-length product (DLP) was 553.78 mGy-cm. Automated exposure control and iterative reconstruction technique were employed. COMPARISON: 04/18/2021 FINDINGS: CHEST CT: There is a 1.5 x 1.4 cm nodule of the right upper lobe which has increased in size and now demonstrat es cavitation. There is a new spiculated 1.7 x 1.4 nodule of the right upper lobe. A new 2.5 x 2.1 cm nodule is present in the superior segment of the right lower lobe. A 4.0 x 2.9 cm mass of the right upper lobe previously measured 7 mm there is a new 2.8 x 2.8 cm spiculated nodule of the right lower lobe. Also seen is a new 10 mm nodule of the right lower lobe. There is mild emphysema. No pleural ef fusion or pneumothorax. Bilateral gynecomastia is noted. No pathologically enlarged thoracic lymph no neel are identified. The heart size is normal. There is calcified coronary artery atherosclerosis. The re is severe thoracic spondylosis. ABDOMEN/PELVIS CT: There are at least four new hypoattenuating masses of the liver. One in the right hepatic lobe measur es 5.6 cm. Two in liver segment four measures 3.3 cm and an 3.4 cm and one in liver segment III measu res 3.7 cm. The spleen, pancreas, gallbladder, and adrenal glands are normal. The right kidney is unr emarkable. The left kidney is absent. There is calcified atherosclerosis of the aorta and many of the other arteries. No pathologically enlarged abdominal or pelvic lymph nodes are identified. There is no free intraperitoneal gas or evidence of bowel obstruction. There are changes of cystectomy and ile al conduit formation. There is moderate lumbar spondylosis. IMPRESSION: 1. Interval progression of disease as evidenced by multiple new and enlarging right lung nodules and masses and at least four new liver masses. Reviewed, dictated and finalized at location F. IMPRESSION: 1. Interval progression of disease as evidenced by multiple new and enlarging r ight lung nodules and masses and at least four new liver masses.
== END 2022-01-19 07:42 | disposition home or self-care (01) ==
LOC: CHSIMG 07:43
PROVIDERS: PCP Family Medicine; Visit Provider Internal Medicine Hematology & Oncology
DX: C67.9 Malignant neoplasm of bladder, unspecified (principal)
CPT/HCPCS: 71260; 74177; Q9967